=== PATIENT | female | born 1960 | race Two or more races ===

== ENCOUNTER 2018-04-10 16:56 | Emergency (ER) | payer SELFPAY ==
[~2018-04-10] VITALS: Ht 165.1 cm; Wt 86.2 kg
[2018-04-10 18:05] LABS: BASO # 0.1 x10^3/uL (0.0-0.2); BASO % 1 % (0-3); EOS # 0.6 x10^3/uL (0.0-0.7); EOS % 8 % (0-3); HEMATOCRIT 38.1 % (36.0-47.0); HEMOGLOBIN 12.7 g/dL (12.0-15.5); LYMPH # 2.9 x10^3/uL (1.0-4.8); LYMPH % 36 % (24-48); MEAN CORPUSCULAR HEMOGLOBIN 28 pg (25-35); MEAN CORPUSCULAR HGB CONC 33 g/dL (31-37); MEAN CORPUSCULAR VOLUME 84 fL (79-100); MONO # 0.6 x10^3/uL (0.0-1.1); MONO % 7 % (0-9); NEUT # 3.8 x10^3uL (1.8-7.7); NEUT % 48 % (31-73); PLATELET COUNT 257 x10^3/uL (140-400); RED BLOOD COUNT 4.56 x10^6/uL (3.50-5.40); RED CELL DISTRIBUTION WIDTH 13.4 % (11.5-14.5)
[2018-04-10] MEDS: methylPREDNISolone SOD SUCC PF 125 MG/2 ML VIAL. IV ONE (18:05)
[2018-04-10] MEDS: IV NORMAL SALINE 500ML BAG 500 ML IV ONE (18:05)
[2018-04-10] MEDS: IPRATRPIUM/ALBUTEROL 0.5/2.5MG 3 ML NEBU. NEB ONE (18:11)
[2018-04-10 18:16] LABS: CALCIUM 8.7 mg/dL (8.5-10.1); GFR 57.6; POTASSIUM 3.6 mmol/L (3.5-5.1)
[2018-04-10 18:23] LABS: ALBUMIN 3.5 g/dL (3.4-5.0); ALBUMIN/GLOBULIN RATIO 0.7 (1.0-1.7); MAGNESIUM 2.4 mg/dL (1.8-2.4); TOTAL BILIRUBIN 0.3 mg/dL (0.2-1.0); TOTAL PROTEIN 8.8 g/dL (6.4-8.2)
--- NOTE | 2018-04-10 18:33 | PHYS DOC ---
Past Medical History Past Medical History: No Pertinent History Alcohol Use: None Drug Use: None Adult General Chief Complaint Chief Complaint: COUGH HPI HPI [facility] G'dgtr at bedside translating as pt not wanting to use translation phone. 57-year-old female presents to ER with complaints of productive cough, shortness of air, and wheezing which started on Friday and gradually been worsening. Patient reports she has had abdominal pain during coughing episodes. Patient reports she felt feverish last night but did not check her temperature. Patient reports she has been coughing up yellow phlegm. Patient reports she has had increased shortness of air over the past couple of days with chest tightness. Patient denies any swelling in extremities. Patient reports she has had intermittent mild headache denying any dizziness, lightheadedness, or ringing in ears. Patient at this time denies VAZQUEZ and at rest on ER cart denies SOA. Pt reports nobody else in family with similar illness. She denies traveling or being a smoker. Review of Systems Review of Systems Constitutional: Reports feeling feverish last night- denies checking temperature. Reports generalized fatigue Eyes: Denies change in visual acuity, redness, or eye pain [] HENT: Denies nasal congestion or sore throat [] Respiratory: Reports prod. cough with yellow phlegm- reports SOA worse with ambulation. Reports mild wheezing Cardiovascular: Reports chest tightness GI: Denies nausea, vomiting, bloody stools or diarrhea. Reports abd pain with coughing episodes : Denies dysuria or hematuria [] Musculoskeletal: Denies back/neck pain or joint pain [] Integument: Denies rash, swelling or skin lesions [] Neurologic: Denies dizziness/light-headedness, focal weakness or sensory changes. Reports intermittent VAZQUEZ which worsens with coughing episodes All other systems were reviewed and found to be within normal limits, except as documented in this note. Current Medications Current Medications Current Medications Medications (Trade) Dose Ordered Sig/Beverly Start Time Stop Time Status Last Admin Dose Admin Albuterol/ Ipratropium (Duoneb) 3 ml 1X ONCE 04/10/18 18:00 04/10/18 18:01 DC 04/10/18 18:11 3 ML Methylprednisolone Sodium Succinate (SOLU-Medrol 125MG VIAL) 125 mg 1X ONCE 04/10/18 18:00 04/10/18 18:01 DC 04/10/18 18:05 125 MG Sodium Chloride 500 ml @ 500 mls/hr 1X ONCE 04/10/18 18:00 04/10/18 18:59 DC 04/10/18 18:05 500 MLS/HR Allergies Allergies Allergies Coded Allergies Type Severity Reaction Last Updated Verified No Known Drug Allergies 04/10/18 No Physical Exam Physical Exam Constitutional: Well developed, well nourished, no acute distress, non-toxic appearance. [] HENT: Normocephalic, atraumatic, bilateral ears normal, mucous membranes pink/ moist, no oral exudates, nose normal. [] Eyes: 3mm PERRLA, no nystagmus, conjunctiva normal, no discharge. [] Neck: Normal range of motion, no tenderness, supple, no gross adenopathy Cardiovascular:Heart rate regular rhythm, no murmur [] Lungs & Thorax: Bilateral breath sounds clear to auscultation. Faint expiratory wheeze rt upper lobe- Lt upper lobe clear with diminished lung sounds in all lobes- less air movement in bilat. bases Abdomen: Bowel sounds normal, soft, no tenderness, no masses, no pulsatile masses. [] Skin: Warm, dry, no erythema, no rash. [] Back: No tenderness, no CVA tenderness. [] Extremities: No tenderness, no cyanosis, no clubbing, ROM intact, no edema. [] Neurologic: Alert and oriented X 3, normal motor function, normal sensory function, no focal deficits noted. [] Psychologic: Affect normal, judgement normal, mood normal. [] Current Patient Data Vital Signs Vital Signs Date Time Temp Pulse Resp B/P (MAP) Pulse Ox O2 Delivery O2 Flow Rate FiO2 04/10/18 19:26 97.9 86 16 141/63 (89) 99 Room Air 97.9 Lab Values Laboratory Tests Test 04/10/18 17:59 White Blood Count 8.0 x10^3/uL (4.0-11.0) Red Blood Count 4.56 x10^6/uL (3.50-5.40) Hemoglobin 12.7 g/dL (12.0-15.5) Hematocrit 38.1 % (36.0-47.0) Mean Corpuscular Volume 84 fL (79-100) Mean Corpuscular Hemoglobin 28 pg (25-35) Mean Corpuscular Hemoglobin Concent 33 g/dL (31-37) Red Cell Distribution Width 13.4 % (11.5-14.5) Platelet Count 257 x10^3/uL (140-400) Neutrophils (%) (Auto) 48 % (31-73) Lymphocytes (%) (Auto) 36 % (24-48) Monocytes (%) (Auto) 7 % (0-9) Eosinophils (%) (Auto) 8 % (0-3) H Basophils (%) (Auto) 1 % (0-3) Neutrophils # (Auto) 3.8 x10^3uL (1.8-7.7) Lymphocytes # (Auto) 2.9 x10^3/uL (1.0-4.8) Monocytes # (Auto) 0.6 x10^3/uL (0.0-1.1) Eosinophils # (Auto) 0.6 x10^3/uL (0.0-0.7) Basophils # (Auto) 0.1 x10^3/uL (0.0-0.2) Sodium Level 140 mmol/L (136-145) Potassium Level 3.6 mmol/L (3.5-5.1) Chloride Level 103 mmol/L (98-107) Carbon Dioxide Level 31 mmol/L (21-32) Anion Gap 6 (6-14) Blood Urea Nitrogen 14 mg/dL (7-20) Creatinine 1.0 mg/dL (0.6-1.0) Estimated GFR (Cockcroft-Gault) 57.6 BUN/Creatinine Ratio 14 (6-20) Glucose Level 121 mg/dL (70-99) H Calcium Level 8.7 mg/dL (8.5-10.1) Magnesium Level 2.4 mg/dL (1.8-2.4) Total Bilirubin 0.3 mg/dL (0.2-1.0) Aspartate Amino Transferase (AST) 21 U/L (15-37) Alanine Aminotransferase (ALT) 28 U/L (14-59) Alkaline Phosphatase 144 U/L (46-116) H Troponin I Quantitative < 0.017 ng/mL (0.000-0.055) Total Protein 8.8 g/dL (6.4-8.2) H Albumin 3.5 g/dL (3.4-5.0) Albumin/Globulin Ratio 0.7 (1.0-1.7) L Laboratory Tests 04/10/18 17:59 Laboratory Tests 04/10/18 17:59 EKG EKG EKG obtained 04/10/18 at 1758 ER physician interpreted Sinus rhythm Rate 89 No STEMI Radiology/Procedures Radiology/Procedures PROCEDURE: CHEST PA & LATERAL Examination: CHEST PA LATERAL History: ER PATIENT. SHORTNESS OF AIR, PRODUCTIVE COUGH WITH YELLOW SPUTUM X4 DAYS. PRIOR XRAY
Comparison/Correlation: 08/18/2007 portable chest x-ray exam Findings: PA and lateral views of chest were obtained. Heart size and pulmonary vasculature are normal. No infiltrate or pleural effusion. Dextroconvex scoliosis of the thoracic spine is present. Impression: No infiltrate. Electronically signed by: Alejandro Sullivan MD (04/10/2018 6:44 PM) [facility] DICTATED and SIGNED BY: ALEJANDRO SULLIVAN MD DATE: 04/10/18 1843 Course & Med Decision Making Course & Med Decision Making Pertinent Labs and Imaging studies reviewed. (See chart for details) 1855: Pt reports after Duoneb/Solu-Medrol her breathing is easier and chest tightness subsided. Discussed test results with pt and her family- chest xray neg. for infiltrates. EKG with no acute ST elevation/STEMI and troponin <0.017. Discussed with improved sxs pt would be discharged home with Rx for Prednisone to start tomorrow and Albuterol inhaler for PRN use. Will provide Rx for tessalon pearls for cough PRN. Discussed if sxs persist or worsen she would need f/u with PCP in next 3-5 days sooner with any concerns. On re-exam pt has increased air movement in all lung alexander and rt upper wheeze has subsided. HR 80 Temp. 97.9 O2 sat 98% RA. Education provided on s&s to return to ER for and discharge instructions were discussed. At time of discharge discussion pt was in no visible distress smiling- she remains nontoxic in appearance. Dragon Disclaimer Dragon Disclaimer This electronic medical record was generated, in whole or in part, using a voice recognition dictation system. Departure Departure Impression: Primary Impression: Upper respiratory infection Additional Impression: Cough Disposition: 01 HOME, SELF-CARE Condition: STABLE Patient Instructions: Cough, Adult, Upper Respiratory Infection, Adult Additional Instructions: Drink plenty of water. If symptoms persist or worsen follow-up with your primary doctor for re- evaluation in next 3-5 days or sooner with any concerns. Scripts Benzonatate (TESSALON PERLE) 100 Mg Capsule 1 CAP PO TID PRN for COUGH, #10 CAP 0 Refills Prov: ALEX ERNANDEZ APRN 04/10/18 Albuterol Sulfate (PROAIR HFA INHALER) 8.5 Gm Hfa.aer.ad 1 PUFF INH PRN Q6HRS PRN for SHORTNESS OF BREATH, #1 INHALER 0 Refills Prov: ALEX ERNANDEZ APRN 04/10/18 Prednisone (PREDNISONE) 20 Mg Tablet 40 MG PO DAILY for 5 Days, #10 TAB 0 Refills start on 04/11/18 Prov: ALEX ERNANDEZ APRN 04/10/18 Attending Signature Attending Signature I have reviewed the PA/HEEL SEAT POUNDER's note and plan of care. I was available for consultation as needed during the patient's visit in the emergency department. I agree with the clinical impression, plan, and disposition. Problem Qualifiers ALEX ERNANDEZ APRN Apr 10, 2018 18:33 REN CONNELL DO Apr 14, 2018 16:04
--- NOTE | 2018-04-10 18:47 | RAD ---
Examination: CHEST PA LATERAL History: ER PATIENT. SHORTNESS OF AIR, PRODUCTIVE COUGH WITH YELLOW SPUTUM X4 DAYS. PRIOR XRAY
Comparison/Correlation: 08/18/2007 portable chest x-ray exam Findings: PA and lateral views of chest were obtained. Heart size and pulmonary vasculature are normal. No infiltrate or pleural effusion. Dextroconvex scoliosis of the thoracic spine is present. Impression: No infiltrate. Electronically signed by: Alejandro Rivera MD (04/10/2018 6:44 PM) [facility]
--- NOTE | 2018-04-10 18:54 | EKG ---
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
[2018-04-10] MEDS ORDERED: BENZ100C PO (19:07)
[2018-04-10] MEDS ORDERED: PRED20TA PO (19:07)
[2018-04-10] MEDS ORDERED: PROAIR HFA8.5 GM INH (19:07)
[2018-04-10 19:26] VITALS: BP 141/63
== END 2018-04-10 19:25 | disposition home or self-care (01) ==
LOC: ER 16:56
DX: J06.9 Acute upper respiratory infection, unspecified (principal); R53.83 Other fatigue
CPT/HCPCS: 36415; 71046; 80053; 83735; 84484; 85025; 93005; 94640; 96374; 99285; J2930; J7040; J7620

== ENCOUNTER 2018-07-23 15:33 | Emergency (ER) | payer SELFPAY ==
[~2018-07-23] VITALS: Ht 167.6 cm; Wt 86.2 kg
[~2018-07-23 15:33] MED LIST: ALBU2.5V8 INH; BENZ100C PO; PRED20TA PO
[2018-07-23] MEDS ORDERED: CETIRIZINE HCL 10 MG TABLET. PO STA (16:52)
[2018-07-23] MEDS ORDERED: methylPREDNISolone SOD SUCC PF 125 MG/2 ML VIAL. IV ONE (17:00)
[2018-07-23] MEDS ORDERED: IPRATRPIUM/ALBUTEROL 0.5/2.5MG 3 ML NEBU. NEB ONE (17:00)
[2018-07-23] MEDS ORDERED: ACETAMINOPHEN 500 MG TABLET PO ONE (17:00)
[2018-07-23 17:08] LABS: BARBITURATES NEG (NEG); BENZODIAZEPINES NEG (NEG); CANNABINOIDS NEG (NEG); COCAINE NEG (NEG); METHADONE NEG (NEG); OPIATES NEG (NEG); PHENCYCLIDINE NEG (NEG)
[2018-07-23 17:10] LABS: AMPHETAMINE/METHAMPHETAMINE NEG (NEG)
[2018-07-23 17:18] LABS: BASO # 0.1 x10^3/uL (0.0-0.2); BASO % 1 % (0-3); EOS # 1.2 x10^3/uL (0.0-0.7); EOS % 17 % (0-3); HEMATOCRIT 40.8 % (36.0-47.0); HEMOGLOBIN 13.1 g/dL (12.0-15.5); LYMPH # 2.7 x10^3/uL (1.0-4.8); LYMPH % 38 % (24-48); MEAN CORPUSCULAR HEMOGLOBIN 27 pg (25-35); MEAN CORPUSCULAR HGB CONC 32 g/dL (31-37); MEAN CORPUSCULAR VOLUME 83 fL (79-100); MONO # 0.5 x10^3/uL (0.0-1.1); MONO % 7 % (0-9); NEUT # 2.7 x10^3uL (1.8-7.7); NEUT % 38 % (31-73); PLATELET COUNT 252 x10^3/uL (140-400); RED BLOOD COUNT 4.92 x10^6/uL (3.50-5.40); RED CELL DISTRIBUTION WIDTH 14.1 % (11.5-14.5); WHITE BLOOD COUNT 7.1 x10^3/uL (4.0-11.0)
[2018-07-23 17:19] LABS: CLARITY,URINE CLEAR; COLOR,URINE YELLOW
[2018-07-23 17:20] LABS: BACTERIA,URINE FEW /HPF (0-FEW); BILIRUBIN,URINE NEGATIVE (NEG); NITRITE,URINE NEGATIVE (NEG); PH,URINE 6.5; PROTEIN,URINE NEGATIVE (NEG-TRACE); RBC,URINE RARE /HPF (0-2); SQUAMOUS EPITHELIAL CELL,UR MOD /LPF; UROBILINOGEN,URINE 0.2 mg/dL (0.2 mg/dL)
[2018-07-23 17:26] LABS: PROTHROMBIN TIME PATIENT 12.6 SEC (11.7-14.0)
[2018-07-23 17:27] LABS: CALCIUM 9.2 mg/dL (8.5-10.1); CREATININE 0.8 mg/dL (0.6-1.0); GFR 74.5; POTASSIUM 3.6 mmol/L (3.5-5.1)
--- NOTE | 2018-07-23 17:30 | PHYS DOC ---
Past Medical History Past Medical History: No Pertinent History Past Surgical History: No Surgical History Alcohol Use: None Drug Use: None Adult General Chief Complaint Chief Complaint: SHORTNESS OF BREATH HPI HPI Patient is a 57 year old female in no significant medical history who presents to the ED today with productive cough 7 out of 10 generalize headache, body aches, shortness of breath, and nasal congestion symptoms for 4 days. Denies any fever. She states her shortness of breath and headaches occur when she coughs. Denies this being the worst headache in her life. Denies taking anything to relieve her symptoms. Patient's also complaining of bilateral exterior eye rash and swelling that began today. Interpretation is provided by family de la cruz [employer] language Review of Systems Review of Systems Constitutional: Reports body aches Denies fever or chills [] Eyes: Reports bilateral exterior eye rash.Denies change in visual acuity, redness, or eye pain [] HENT: Denies nasal congestion or sore throat [] Respiratory: Reports cough and shortness of breath [] Cardiovascular: No additional information not addressed in HPI [] GI: Denies abdominal pain, nausea, vomiting, bloody stools or diarrhea [] : Denies dysuria or hematuria [] Musculoskeletal: Denies back pain or joint pain [] Integument: Denies rash or skin lesions [] Neurologic: Denies headache, focal weakness or sensory changes [] All other systems were reviewed and found to be within normal limits, except as documented in this note. Current Medications Current Medications Current Medications Medications (Trade) Dose Ordered Sig/Beverly Start Time Stop Time Status Last Admin Dose Admin Acetaminophen (Tylenol) 1,000 mg 1X ONCE 07/23/18 17:00 07/23/18 17:01 DC 07/23/18 17:40 1,000 MG Albuterol/ Ipratropium (Duoneb) 3 ml 1X ONCE 07/23/18 17:00 07/23/18 17:01 DC 07/23/18 17:35 3 ML Cetirizine HCl (ZyrTEC) 10 mg 1X STAT 07/23/18 16:52 07/23/18 16:55 DC 07/23/18 17:39 10 MG Methylprednisolone Sodium Succinate (SOLU-Medrol 125MG VIAL) 125 mg 1X ONCE 07/23/18 17:00 07/23/18 17:01 DC 07/23/18 17:39 125 MG Allergies Allergies Allergies Coded Allergies Type Severity Reaction Last Updated Verified No Known Drug Allergies 04/10/18 No Physical Exam Physical Exam Constitutional: Well developed, well nourished, no acute distress, non-toxic appearance. [] HENT: Normocephalic, atraumatic, bilateral external ears normal, oropharynx moist, no oral exudates, nose normal. [] Eyes: Bilateral exterior eyes with a mild rash suspicious of contact dermatitis , similar rash on the face around the cheeks and upper lip. PERRLA, EOMI, conjunctiva normal, no discharge. [] Neck: Normal range of motion, no tenderness, supple, no stridor. [] Cardiovascular:Heart rate regular rhythm, no murmur [] Lungs & Thorax: Patient is actively coughing in the ED. Slight wheezing to posterior and anterior upper lung bases. Abdomen: Bowel sounds normal, soft, no tenderness, no masses, no pulsatile masses. [] Skin: Warm, dry, no erythema, no rash. [] Back: No tenderness, no CVA tenderness. [] Extremities: No tenderness, no cyanosis, no clubbing, ROM intact, no edema. [] Neurologic: Alert and oriented X 3, normal motor function, normal sensory function, no focal deficits noted. [] Psychologic: Affect normal, judgement normal, mood normal. [] Current Patient Data Vital Signs Vital Signs Date Time Temp Pulse Resp B/P (MAP) Pulse Ox O2 Delivery O2 Flow Rate FiO2 07/23/18 17:41 95 Room Air 07/23/18 16:30 98.0 86 20 176/87 (116) 98.0 Lab Values Laboratory Tests Test 07/23/18 16:35 07/23/18 17:00 07/23/18 17:20 Urine Collection Type Unknown Urine Color Yellow Urine Clarity Clear Urine pH 6.5 Urine Specific [place] <=1.005 Urine Protein Negative mg/dL (NEG-TRACE) Urine Glucose (UA) Negative mg/dL (NEG) Urine Ketones (Stick) Negative mg/dL (NEG) Urine Blood Trace (NEG) Urine Nitrite Negative (NEG) Urine Bilirubin Negative (NEG) Urine Urobilinogen Dipstick 0.2 mg/dL (0.2 mg/dL) Urine Leukocyte Esterase Small (NEG) Urine RBC Rare /HPF (0-2) Urine WBC 1-4 /HPF (0-4) Urine Squamous Epithelial Cells Mod /LPF Urine Bacteria Few /HPF (0-FEW) Urine Opiates Screen Neg (NEG) Urine Methadone Screen Neg (NEG) Urine Barbiturates Neg (NEG) Urine Phencyclidine Screen Neg (NEG) Urine Amphetamine/Methamphetamine Neg (NEG) Urine Benzodiazepines Screen Neg (NEG) Urine Cocaine Screen Neg (NEG) Urine Cannabinoids Screen Neg (NEG) Urine Ethyl Alcohol Neg (NEG) White Blood Count 7.1 x10^3/uL (4.0-11.0) Red Blood Count 4.92 x10^6/uL (3.50-5.40) Hemoglobin 13.1 g/dL (12.0-15.5) Hematocrit 40.8 % (36.0-47.0) Mean Corpuscular Volume 83 fL (79-100) Mean Corpuscular Hemoglobin 27 pg (25-35) Mean Corpuscular Hemoglobin Concent 32 g/dL (31-37) Red Cell Distribution Width 14.1 % (11.5-14.5) Platelet Count 252 x10^3/uL (140-400) Neutrophils (%) (Auto) 38 % (31-73) Lymphocytes (%) (Auto) 38 % (24-48) Monocytes (%) (Auto) 7 % (0-9) Eosinophils (%) (Auto) 17 % (0-3) H Basophils (%) (Auto) 1 % (0-3) Neutrophils # (Auto) 2.7 x10^3uL (1.8-7.7) Lymphocytes # (Auto) 2.7 x10^3/uL (1.0-4.8) Monocytes # (Auto) 0.5 x10^3/uL (0.0-1.1) Eosinophils # (Auto) 1.2 x10^3/uL (0.0-0.7) H Basophils # (Auto) 0.1 x10^3/uL (0.0-0.2) Segmented Neutrophils % 45 % (35-66) Band Neutrophils % 1 % (0-9) Lymphocytes % 28 % (24-48) Atypical Lymphocytes % (Manual) 1 % (0-0) H Monocytes % 9 % (0-10) Eosinophils % 16 % (0-5) H Platelet Estimate Adequate (ADEQUATE) Prothrombin Time 12.6 SEC (11.7-14.0) Prothrombin Time INR 1.0 (0.8-1.1) Sodium Level 141 mmol/L (136-145) Potassium Level 3.6 mmol/L (3.5-5.1) Chloride Level 103 mmol/L (98-107) Carbon Dioxide Level 32 mmol/L (21-32) Anion Gap 6 (6-14) Blood Urea Nitrogen 11 mg/dL (7-20) Creatinine 0.8 mg/dL (0.6-1.0) Estimated GFR (Cockcroft-Gault) 74.5 BUN/Creatinine Ratio 14 (6-20) Glucose Level 84 mg/dL (70-99) Calcium Level 9.2 mg/dL (8.5-10.1) Magnesium Level 2.5 mg/dL (1.8-2.4) H Total Bilirubin 0.4 mg/dL (0.2-1.0) Aspartate Amino Transferase (AST) 19 U/L (15-37) Alanine Aminotransferase (ALT) 23 U/L (14-59) Alkaline Phosphatase 151 U/L (46-116) H Creatine Kinase 122 U/L (26-192) Creatine Kinase MB (Mass) 0.8 ng/mL (0.0-3.6) Creatine Kinase MB Relative Index 0.7 % (0-4) Troponin I Quantitative < 0.017 ng/mL (0.000-0.055) DB-Ldu-I-Type Natriuretic Peptide 21 pg/mL (0-124) Total Protein 9.0 g/dL (6.4-8.2) H Albumin 3.5 g/dL (3.4-5.0) Albumin/Globulin Ratio 0.6 (1.0-1.7) L Thyroid Stimulating Hormone (TSH) 1.982 uIU/mL (0.358-3.74) Influenza Type A Antigen Negative (NEGATIVE) Influenza Type B Antigen Negative (NEGATIVE) Laboratory Tests 07/23/18 17:00 Laboratory Tests 07/23/18 17:00 EKG EKG Interpreted by Dr. Warren sinus rhythm HR 77 no STEMI[] Radiology/Procedures Radiology/Procedures []PROCEDURE: PORTABLE CHEST 1V AP portable chest radiograph 07/23/2018 Clinical History: Cough. An AP erect portable digital radiograph of the chest was obtained. Comparison study is dated 04/10/2018. The cardiac silhouette is mildly enlarged. The thoracic aorta is tortuous. No acute pulmonary infiltrate is seen. No pleural effusion or pneumothorax is noted. Moderate S-shaped curvature of the thoracolumbar spine is seen. Degenerative changes are seen involving the thoracic spine. Impression: No acute abnormality is seen. Electronically signed by: Henry Hurt MD (07/23/2018 5:58 PM) [facility] DICTATED and SIGNED BY: HENRY HURT MD DATE: 07/23/18 9409 Course & Med Decision Making Course & Med Decision Making Pertinent Labs and Imaging studies reviewed. (See chart for details) This is a 57-year-old female patient presenting to the ED today with cough, headache only when she coughs, shortness of breath, symptoms for 4 days. Patient is also complaining of a rash around her exterior eye, cheeks and upper lip. Rash suspicious of allergic reaction or contact dermatitis. Patient was given Solu-Medrol, Zyrtec, rash has improved. EKG was negative, chest x-ray is negative, urine analysis is appears contaminated. CBC with no acute findings, CMP with alkaline phosphatase of 157. Patient denies any abdominal pain. Patient was given a DuoNeb treatment. She states she is feeling better her breathing is back to baseline. I highly suspect she has acute bronchitis. Will be discharged with albuterol inhaler, prednisone and Tessalon Perles. Follow-up with PCP in 1-2 weeks. Also her blood pressure was in the 150s over low 100s. She is no history of hypertension. Her family member states she will take patient to a primary care doctor/local clinic in the course of next week. Dragon Disclaimer Dragon Disclaimer This electronic medical record was generated, in whole or in part, using a voice recognition dictation system. Departure Departure Impression: Primary Impression: Acute bronchitis Additional Impressions: Upper respiratory infection Contact dermatitis Elevated blood pressure reading Disposition: 01 HOME, SELF-CARE Condition: STABLE Referrals: NO PCP (PCP) Follow-up with your doctor in one week Patient Instructions: Acute Bronchitis, [id number], Contact Dermatitis, Upper Respiratory Infection, Adult, [id number] Additional Instructions: You were evaluated in the emergency room for acute bronchitis. Take the prescribed medications as ordered. Your blood pressure was also elevated. Follow -up with your own doctor in 1-2 weeks. Scripts Cetirizine Hcl (ZYRTEC) 10 Mg Tablet 1 TAB PO DAILY, #30 TAB 3 Refills Prov: YESSENIA QUIÑONEZ APRN 07/23/18 Albuterol Sulfate (VENTOLIN HFA INHALER) 18 Gm Hfa.aer.ad 2 PUFF INH Q4HRS for FOR ASTHMA, #1 INHALER 0 Refills Prov: YESSENIA QUIÑONEZ APRN 07/23/18 Benzonatate (TESSALON PERLE) 100 Mg Capsule 1 CAP PO TID, #30 CAP Prov: YESSENIA QUIÑONEZ APRN 07/23/18 Prednisone (PREDNISONE) 50 Mg Tablet 1 TAB PO DAILY, #5 TAB Prov: YESSENIA QUIÑONEZ APRN 07/23/18 Ketotifen Fumarate (ZADITOR) 5 Ml Drops 1 DROP EACHEYE BID, #5 ML 1 Refill Prov: YESSENIA QUIÑONEZ APRN 07/23/18 Problem Qualifiers Primary Impression: Acute bronchitis Bronchitis organism: unspecified organism Qualified Codes: J20.9 - Acute bronchitis, unspecified Additional Impressions: Upper respiratory infection URI type: unspecified URI Qualified Codes: J06.9 - Acute upper respiratory infection, unspecified Contact dermatitis Contact dermatitis type: unspecified Contact dermatitis trigger: unspecified trigger Qualified Codes: L25.9 - Unspecified contact dermatitis, unspecified cause YESSENIA QUIÑONEZ APRN Jul 23, 2018 17:30
[2018-07-23 17:35] LABS: ALBUMIN 3.5 g/dL (3.4-5.0); ALBUMIN/GLOBULIN RATIO 0.6 (1.0-1.7); MAGNESIUM 2.5 mg/dL (1.8-2.4); TOTAL BILIRUBIN 0.4 mg/dL (0.2-1.0)
[2018-07-23 17:48] LABS: INFLUENZA A PATIENT NEGATIVE (NEGATIVE); INFLUENZA B PATIENT NEGATIVE (NEGATIVE)
[2018-07-23 17:53] LABS: % ATYL 1 % (0-0); % BANDS 1 % (0-9); % EOS 16 % (0-5); % LYMPHS 28 % (24-48); % MONOS 9 % (0-10); % SEGS 45 % (35-66); PLT ESTIMATE ADEQUATE (ADEQUATE)
--- NOTE | 2018-07-23 18:01 | RAD ---
AP portable chest radiograph 07/23/2018 Clinical History: Cough. An AP erect portable digital radiograph of the chest was obtained. Comparison study is dated 04/10/2018. The cardiac silhouette is mildly enlarged. The thoracic aorta is tortuous. No acute pulmonary infiltrate is seen. No pleural effusion or pneumothorax is noted. Moderate S-shaped curvature of the thoracolumbar spine is seen. Degenerative changes are seen involving the thoracic spine. Impression: No acute abnormality is seen. Electronically signed by: Henry Hurt MD (07/23/2018 5:58 PM) [facility]
[2018-07-23] MEDS ORDERED: VENTOLIN HFA18 GM INH (18:33)
[2018-07-23] MEDS ORDERED: BENZ100C PO (18:33)
[2018-07-23] MEDS ORDERED: PRED50TA PO (18:33)
[2018-07-23] MEDS ORDERED: CETI10TA22 PO (18:33)
[2018-07-23] MEDS ORDERED: KETO5DRO4 EACHEYE (18:33)
[2018-07-23 19:10] VITALS: BP 152/72
--- NOTE | 2018-07-23 21:11 | EKG ---
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
== END 2018-07-23 19:20 | disposition home or self-care (01) ==
LOC: ER 15:33
DX: J20.9 Acute bronchitis, unspecified (principal); J06.9 Acute upper respiratory infection, unspecified; L25.9 Unspecified contact dermatitis, unspecified cause; R03.0 Elevated blood-pressure reading, without diagnosis of hypertension; R51 Headache
CPT/HCPCS: 36415; 71045; 80053; 80307; 81001; 82553; 83735; 83880; 84443; 84484; 85007; 85025; 85610; 87804; 93005; 94640; 96374; 99284; J2930; J7620

== ENCOUNTER 2018-08-07 18:39 | Inpatient (IN) | payer SELFPAY ==
[~2018-08-07] VITALS: Ht 162.6 cm; Wt 88.5 kg
[~2018-08-07 18:39] MED LIST changes: +CETI10TA22 PO; +KETO5DRO4 EACHEYE; +PRED50TA PO; +VENTOLIN HFA18 GM INH
[2018-08-07] MEDS ORDERED: IV NORMAL SALINE 500ML BAG 500 ML IV ONE (19:15)
[2018-08-07] MEDS ORDERED: fentaNYL PF VIAL 100 MCG/2 ML VIAL IV ONE (19:15)
[2018-08-07] MEDS ORDERED: predniSONE 10 MG TABLET PO ONE (19:15)
[2018-08-07] MEDS ORDERED: IPRATRPIUM/ALBUTEROL 0.5/2.5MG 3 ML NEBU. NEB ONE (19:15)
--- NOTE | 2018-08-07 19:16 | PHYS DOC ---
Past Medical History Past Medical History: No Pertinent History (ALEX ERNANDEZ APRN) Past Surgical History: No Surgical History (ALEX ERNANDEZ APRN) Alcohol Use: None Drug Use: None (ALEX ERNANDEZ APRN) Adult General Chief Complaint Chief Complaint: CHEST PAIN HPI HPI 57 y/o female presents to ER with his family who is translating as patient speaks Chukese. Per granddaughter at bedside patient started having cough and mid CP last night with chills and generalized fatigue. Family denies any recent travel or patient being in a daily smoker. Pt denies N/V/D. She denies urinary sxs, abd pain, neck/back pain, or swelling. She took ibuprofen earlier with minimal relief in sxs. No others in home with similar illness. Pt did not receive flu vaccine last year. (ALEX ERNANDEZ APRN) Review of Systems Review of Systems Constitutional: Denies fever. Reports chills and generalized fatigue Eyes: Denies change in visual acuity, redness, or eye pain [] HENT: Denies nasal congestion or sore throat [] Respiratory: Reports cough and SOA Cardiovascular: Reports mid CP GI: Denies abdominal pain, nausea, vomiting, bloody stools or diarrhea [] : Denies dysuria or hematuria [] Musculoskeletal: Denies back pain or joint pain [] Integument: Denies rash or skin lesions [] Neurologic: Denies headache, focal weakness or sensory changes [] Endocrine: Denies polyuria or polydipsia [] All other systems were reviewed and found to be within normal limits, except as documented in this note. (ALEX ERNANDEZ APRN) Current Medications Current Medications Current Medications Medications (Trade) Dose Ordered Sig/Beverly Start Time Stop Time Status Last Admin Dose Admin Albuterol Sulfate (Ventolin Neb Soln) 10 mg 1X ONCE 08/07/18 20:00 08/07/18 20:01 DC 08/07/18 20:32 10 MG Albuterol/ Ipratropium (Duoneb) 3 ml 1X ONCE 08/07/18 20:00 08/07/18 20:01 Cancel Fentanyl Citrate (Fentanyl 2ml Vial) 25 mcg 1X ONCE 08/07/18 19:15 08/07/18 19:16 DC 08/07/18 19:26 25 MCG Prednisone (Prednisone) 50 mg 1X ONCE 08/07/18 19:15 08/07/18 19:16 DC 08/07/18 19:26 50 MG Sodium Chloride 1,000 ml @ 1,000 mls/hr 1X ONCE 08/07/18 19:30 08/07/18 20:29 DC 08/07/18 19:25 1,000 MLS/HR (REN CONNELL DO) Allergies Allergies Allergies Coded Allergies Type Severity Reaction Last Updated Verified No Known Drug Allergies 04/10/18 No (REN CONNELL DO) Physical Exam Physical Exam Constitutional: Well developed, well nourished, no acute distress, non-toxic appearance.Fatigued appearance HENT: Normocephalic, atraumatic, bilateral ears normal, mucous membranes pink/dry- no pharyngeal swelling/erythema, no oral exudates, nose normal. [] Eyes: Pupils equal, conjunctiva normal, no discharge. [] Neck: Normal range of motion, no tenderness, supple, no stridor. [] Cardiovascular: Heart rate regular rhythm, no murmur [] Lungs & Thorax: Coarse bilat. upper lung sounds with expiratory wheezing bilat. Decreased air movement throughout all lung alexander with less air movement in bases. Resp. slightly labored/equal. Pt is speaking in full sentences with family Abdomen: Bowel sounds normal, soft/obese, no tenderness, no masses, no pulsatile masses. [] Skin: Warm, dry, no erythema, no rash. [] Back: No tenderness, no CVA tenderness. [] Extremities: No tenderness, no cyanosis, no clubbing, ROM intact, 1+ bilat nonpitting Neurologic: Alert and oriented X 3, normal motor function, normal sensory function, no focal deficits noted. [] Psychologic: Affect normal, judgement normal, mood normal. [] (AZART,ALEX Martinez APRN) Current Patient Data Lab Values Laboratory Tests Test 08/07/18 18:52 08/07/18 19:44 08/07/18 20:29 White Blood Count 9.7 x10^3/uL (4.0-11.0) Red Blood Count 4.79 x10^6/uL (3.50-5.40) Hemoglobin 12.9 g/dL (12.0-15.5) Hematocrit 39.3 % (36.0-47.0) Mean Corpuscular Volume 82 fL (79-100) Mean Corpuscular Hemoglobin 27 pg (25-35) Mean Corpuscular Hemoglobin Concent 33 g/dL (31-37) Red Cell Distribution Width 14.8 % (11.5-14.5) H Platelet Count 332 x10^3/uL (140-400) Neutrophils (%) (Auto) 51 % (31-73) Lymphocytes (%) (Auto) 34 % (24-48) Monocytes (%) (Auto) 6 % (0-9) Eosinophils (%) (Auto) 9 % (0-3) H Basophils (%) (Auto) 1 % (0-3) Neutrophils # (Auto) 5.0 x10^3uL (1.8-7.7) Lymphocytes # (Auto) 3.3 x10^3/uL (1.0-4.8) Monocytes # (Auto) 0.6 x10^3/uL (0.0-1.1) Eosinophils # (Auto) 0.8 x10^3/uL (0.0-0.7) H Basophils # (Auto) 0.1 x10^3/uL (0.0-0.2) Sodium Level 140 mmol/L (136-145) Potassium Level 3.7 mmol/L (3.5-5.1) Chloride Level 102 mmol/L (98-107) Carbon Dioxide Level 30 mmol/L (21-32) Anion Gap 8 (6-14) Blood Urea Nitrogen 11 mg/dL (7-20) Creatinine 0.8 mg/dL (0.6-1.0) Estimated GFR (Cockcroft-Gault) 74.5 BUN/Creatinine Ratio 14 (6-20) Glucose Level 107 mg/dL (70-99) H Calcium Level 9.2 mg/dL (8.5-10.1) Magnesium Level 2.5 mg/dL (1.8-2.4) H Total Bilirubin 0.6 mg/dL (0.2-1.0) Aspartate Amino Transferase (AST) 16 U/L (15-37) Alanine Aminotransferase (ALT) 20 U/L (14-59) Alkaline Phosphatase 153 U/L (46-116) H Troponin I Quantitative < 0.017 ng/mL (0.000-0.055) Total Protein 9.2 g/dL (6.4-8.2) H Albumin 3.6 g/dL (3.4-5.0) Albumin/Globulin Ratio 0.6 (1.0-1.7) L Lactic Acid Level 1.7 mmol/L (0.4-2.0) Influenza Type A Antigen Negative (NEGATIVE) Influenza Type B Antigen Negative (NEGATIVE) Urine Collection Type Unknown Urine Color Yellow Urine Clarity Clear Urine pH 6.5 Urine Specific [place] 1.020 Urine Protein Negative mg/dL (NEG-TRACE) Urine Glucose (UA) Negative mg/dL (NEG) Urine Ketones (Stick) Negative mg/dL (NEG) Urine Blood Moderate (NEG) Urine Nitrite Positive (NEG) Urine Bilirubin Negative (NEG) Urine Urobilinogen Dipstick 1.0 mg/dL (0.2 mg/dL) Urine Leukocyte Esterase Small (NEG) Urine RBC Occ /HPF (0-2) Urine WBC 11-20 /HPF (0-4) Urine Squamous Epithelial Cells Occ /LPF Urine Bacteria Many /HPF (0-FEW) Urine Mucus Mod /LPF Laboratory Tests 08/07/18 18:52 Laboratory Tests 08/07/18 18:52 (REN CONNELL DO) Lab Values Laboratory Tests Test 08/07/18 18:52 08/07/18 19:44 08/07/18 20:29 White Blood Count 9.7 x10^3/uL (4.0-11.0) Red Blood Count 4.79 x10^6/uL (3.50-5.40) Hemoglobin 12.9 g/dL (12.0-15.5) Hematocrit 39.3 % (36.0-47.0) Mean Corpuscular Volume 82 fL (79-100) Mean Corpuscular Hemoglobin 27 pg (25-35) Mean Corpuscular Hemoglobin Concent 33 g/dL (31-37) Red Cell Distribution Width 14.8 % (11.5-14.5) H Platelet Count 332 x10^3/uL (140-400) Neutrophils (%) (Auto) 51 % (31-73) Lymphocytes (%) (Auto) 34 % (24-48) Monocytes (%) (Auto) 6 % (0-9) Eosinophils (%) (Auto) 9 % (0-3) H Basophils (%) (Auto) 1 % (0-3) Neutrophils # (Auto) 5.0 x10^3uL (1.8-7.7) Lymphocytes # (Auto) 3.3 x10^3/uL (1.0-4.8) Monocytes # (Auto) 0.6 x10^3/uL (0.0-1.1) Eosinophils # (Auto) 0.8 x10^3/uL (0.0-0.7) H Basophils # (Auto) 0.1 x10^3/uL (0.0-0.2) Sodium Level 140 mmol/L (136-145) Potassium Level 3.7 mmol/L (3.5-5.1) Chloride Level 102 mmol/L (98-107) Carbon Dioxide Level 30 mmol/L (21-32) Anion Gap 8 (6-14) Blood Urea Nitrogen 11 mg/dL (7-20) Creatinine 0.8 mg/dL (0.6-1.0) Estimated GFR (Cockcroft-Gault) 74.5 BUN/Creatinine Ratio 14 (6-20) Glucose Level 107 mg/dL (70-99) H Calcium Level 9.2 mg/dL (8.5-10.1) Magnesium Level 2.5 mg/dL (1.8-2.4) H Total Bilirubin 0.6 mg/dL (0.2-1.0) Aspartate Amino Transferase (AST) 16 U/L (15-37) Alanine Aminotransferase (ALT) 20 U/L (14-59) Alkaline Phosphatase 153 U/L (46-116) H Troponin I Quantitative < 0.017 ng/mL (0.000-0.055) Total Protein 9.2 g/dL (6.4-8.2) H Albumin 3.6 g/dL (3.4-5.0) Albumin/Globulin Ratio 0.6 (1.0-1.7) L Lactic Acid Level 1.7 mmol/L (0.4-2.0) Influenza Type A Antigen Negative (NEGATIVE) Influenza Type B Antigen Negative (NEGATIVE) Urine Collection Type Unknown Urine Color Yellow Urine Clarity Clear Urine pH 6.5 Urine Specific [place] 1.020 Urine Protein Negative mg/dL (NEG-TRACE) Urine Glucose (UA) Negative mg/dL (NEG) Urine Ketones (Stick) Negative mg/dL (NEG) Urine Blood Moderate (NEG) Urine Nitrite Positive (NEG) Urine Bilirubin Negative (NEG) Urine Urobilinogen Dipstick 1.0 mg/dL (0.2 mg/dL) Urine Leukocyte Esterase Small (NEG) Urine RBC Occ /HPF (0-2) Urine WBC 11-20 /HPF (0-4) Urine Squamous Epithelial Cells Occ /LPF Urine Bacteria Many /HPF (0-FEW) Urine Mucus Mod /LPF Laboratory Tests 08/07/18 18:52 Laboratory Tests 08/07/18 18:52 (ALEX ERNANDEZ APRN) EKG EKG EKG obtained 08/07/18 at [address] Connell Sinus rhythm Rate 98 No STEMI (ALEX ERNANDEZ APRN) Radiology/Procedures Radiology/Procedures [] (ALEX ERNANDEZ APRN) Course & Med Decision Making Course & Med Decision Making Pertinent Labs and Imaging studies reviewed. (See chart for details) Patient was evaluated in the ER for complaints of cough, shortness of air, and mid chest pain. Patient's chest x-ray was evaluated by Dr. Connell with no obvious acute findings. Patient was given PO Prednisone and Duoneb treatment she continued to have inspiratory/expiratory wheezing and coarse lung sounds in upper lung alexander. She did have slight increase in air movement in bases following initial treatment. With ongoing wheezing and coarse upper lung right pt was given continuous neb. tx x1 hr and admission was discussed with pt and her family. She is agreeable with admission plan. WBCs were 9.7 no bands and lactic acid normal limits at 1.7. EKG with no acute ST elevation or STEMI and troponin was <0.017. Test results were discussed with patient and her family. At time of discussion patient was in no visible distress. Respirations were equal and nonlabored. O2 sat was 96% on room air. Will start patient on IV Rocephin and azithromycin while in the ER. Will admit patient to hospitalist services for further care and monitoring. 2104: Spoke with Dr. Mercer, hospitalist discussed patient's case and admit plan- per his request will consult pulmonology with admit orders. Will admit to med/tele for further monitoring. (ALEX ERNANDEZ APRN) Dragon Disclaimer Dragon Disclaimer This electronic medical record was generated, in whole or in part, using a voice recognition dictation system. (ALEX ERNANDEZ APRN) Departure Departure Impression: Primary Impression: Acute bronchitis Additional Impressions: Chest pain Cough Disposition: ADMITTED INPATIENT Admitting Physician: Danuta Mercer (ALEX ERNANDEZ APRN) Condition: STABLE Referrals: NO PCP (PCP) Scripts No Active Prescriptions or Reported Meds Attending Signature Attending Signature I have reviewed the PA/IT TECHNICAL SUPPORT SPECIALIST's note and plan of care. I was available for consultation as needed during the patient's visit in the emergency department. I agree with the clinical impression, plan, and disposition. (REN CONNELL DO) Problem Qualifiers ALEX ERNANDEZ APRN Aug 07, 2018 19:16 REN OCNNELL DO Sep 29, 2018 05:30
[2018-08-07 19:24] LABS: BASO # 0.1 x10^3/uL (0.0-0.2); BASO % 1 % (0-3); EOS # 0.8 x10^3/uL (0.0-0.7); EOS % 9 % (0-3); HEMATOCRIT 39.3 % (36.0-47.0); HEMOGLOBIN 12.9 g/dL (12.0-15.5); LYMPH # 3.3 x10^3/uL (1.0-4.8); LYMPH % 34 % (24-48); MEAN CORPUSCULAR HEMOGLOBIN 27 pg (25-35); MEAN CORPUSCULAR HGB CONC 33 g/dL (31-37); MEAN CORPUSCULAR VOLUME 82 fL (79-100); MONO # 0.6 x10^3/uL (0.0-1.1); MONO % 6 % (0-9); NEUT % 51 % (31-73); PLATELET COUNT 332 x10^3/uL (140-400); RED BLOOD COUNT 4.79 x10^6/uL (3.50-5.40); RED CELL DISTRIBUTION WIDTH 14.8 % (11.5-14.5); WHITE BLOOD COUNT 9.7 x10^3/uL (4.0-11.0)
[2018-08-07] MEDS ORDERED: IV NORMAL SALINE 1000ML BAG 1,000 ML IV ONE (19:30)
[2018-08-07 19:40] LABS: CALCIUM 9.2 mg/dL (8.5-10.1); CREATININE 0.8 mg/dL (0.6-1.0); GFR 74.5; POTASSIUM 3.7 mmol/L (3.5-5.1)
[2018-08-07 19:47] LABS: ALBUMIN 3.6 g/dL (3.4-5.0); ALBUMIN/GLOBULIN RATIO 0.6 (1.0-1.7); MAGNESIUM 2.5 mg/dL (1.8-2.4); TOTAL BILIRUBIN 0.6 mg/dL (0.2-1.0); TOTAL PROTEIN 9.2 g/dL (6.4-8.2)
[2018-08-07] MEDS ORDERED: IPRATRPIUM/ALBUTEROL 0.5/2.5MG 3 ML NEBU. CONT NEB ONE (20:00)
[2018-08-07] MEDS ORDERED: ALBUTEROL SULFATE 2.5 MG/3 ML NEBU. CONT NEB ONE (20:00)
[2018-08-07 20:15] LABS: INFLUENZA A PATIENT NEGATIVE (NEGATIVE); INFLUENZA B PATIENT NEGATIVE (NEGATIVE)
[2018-08-07 20:44] LABS: BILIRUBIN,URINE NEGATIVE (NEG); CLARITY,URINE CLEAR; COLOR,URINE YELLOW; NITRITE,URINE POSITIVE (NEG); PH,URINE 6.5; PROTEIN,URINE NEGATIVE (NEG-TRACE)
[2018-08-07 20:55] LABS: BACTERIA,URINE MANY /HPF (0-FEW); RBC,URINE OCC /HPF (0-2); SQUAMOUS EPITHELIAL CELL,UR OCC /LPF
[2018-08-07] MEDS ORDERED: ACETAMINOPHEN 325 MG TABLET. PO PRN (21:30)
[2018-08-07] MEDS ORDERED: AZITHRMYCN 500MG IVPB FOR OMNI 250 ML IV ONE (21:30)
[2018-08-07] MEDS ORDERED: cefTRIAXone IV Push 1 GM VIAL. IVP ONE (21:30)
--- NOTE | 2018-08-07 21:49 | RAD ---
EXAM: Chest, 2 views. HISTORY: Chest pain. COMPARISON: 07/23/2018 FINDINGS: 2 views of the chest are obtained. There is right infrahilar opacity due to prominent right pulmonary vascular shadows, accentuated due to thoracic scoliosis. There is no consolidation, pleural effusion or pneumothorax. The heart is normal in size. IMPRESSION: No acute pulmonary finding. Electronically signed by: Nirmala Snow MD (08/07/2018 9:46 PM) [id number]
[2018-08-07 22:31] VITALS: BP 152/66
[2018-08-08 02:42] VITALS: BP 149/60
[2018-08-08 04:17] LABS: BASO % 0 % (0-3); EOS % 0 % (0-3); HEMATOCRIT 35.1 % (36.0-47.0); HEMOGLOBIN 11.1 g/dL (12.0-15.5); LYMPH # 0.5 x10^3/uL (1.0-4.8); LYMPH % 7 % (24-48); MEAN CORPUSCULAR HEMOGLOBIN 27 pg (25-35); MEAN CORPUSCULAR HGB CONC 32 g/dL (31-37); MEAN CORPUSCULAR VOLUME 84 fL (79-100); MONO # 0.1 x10^3/uL (0.0-1.1); MONO % 1 % (0-9); NEUT # 7.6 x10^3uL (1.8-7.7); NEUT % 93 % (31-73); PLATELET COUNT 276 x10^3/uL (140-400); RED BLOOD COUNT 4.19 x10^6/uL (3.50-5.40); WHITE BLOOD COUNT 8.2 x10^3/uL (4.0-11.0)
[2018-08-08 06:12] LABS: CALCIUM 8.7 mg/dL (8.5-10.1); CREATININE 1.3 mg/dL (0.6-1.0); GFR 42.5; POTASSIUM 3.9 mmol/L (3.5-5.1)
[2018-08-08 07:00] VITALS: BP 112/51
[2018-08-08] MEDS: IPRATRPIUM/ALBUTEROL 0.5/2.5MG 3 ML NEBU. NEB SCH ×4 (07:51→18:54)
[2018-08-08 08:39] LABS: % BANDS 5 % (0-9); % LYMPHS 6 % (24-48); % MONOS 1 % (0-10); % SEGS 88 % (35-66); PLT ESTIMATE ADEQUATE (ADEQUATE)
[2018-08-08 08:40] LABS: ANISOCYTOSIS SLIGHT; OVALOCYTES FEW
--- NOTE | 2018-08-08 10:47 | EKG ---
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
[2018-08-08 11:00] VITALS: BP 136/71
[2018-08-08] MEDS ORDERED: DEXTROSE 50% 25 GM / 50ML DISP.SYRIN. IV PRN (11:45)
--- NOTE | 2018-08-08 12:57 | HP ---
ADMIT DATE: 08/07/2018 CHIEF COMPLAINT: Chest pain. HISTORY OF PRESENT ILLNESS: The patient is a pleasant 57-year-old female, well known to my service. She is from [facility] and speaks very little Khmer, but actually does speak Chu[place]ese. Per her granddaughter, the patient is complaining of chest discomfort, started last night. She has some generalized fatigue, rates this 7/10, causes some anxiety. She tried taking some home meds, but that did not work. She describes it as irritating. I discussed the case with ER physician. We are going to admit the patient and consult Cardiology. PAST MEDICAL HISTORY: Previous admissions for chest pain, anxiety, history of UTIs, history of pneumonia. ALLERGIES: None. FAMILY HISTORY: Hypertension. SOCIAL HISTORY: She does not drink, smoke or take drugs. MEDICATIONS: Reviewed, please refer to the MRAD. REVIEW OF SYSTEMS: GENERAL: No history of weight change, weakness or fevers. SKIN: No bruising, hair changes or rashes. EYES: No blurred, double or loss of vision. NOSE AND THROAT: No history of nosebleeds, hoarseness or sore throat. HEART: She complains of chest pain.. LUNGS: She complains of cough.. GASTROINTESTINAL: Denies changes in appetite, nausea, vomiting, diarrhea or constipation. GENITOURINARY: No history of frequency, urgency, hesitancy or nocturia. NEUROLOGIC: Denies history of numbness, tingling, tremor or weakness. PSYCHIATRIC: No history of panic, anxiety or depression. ENDOCRINE: No history of heat or cold intolerance, polyuria or polydipsia. EXTREMITIES: Denies muscle weakness, joint pain, pain on walking or stiffness. PHYSICAL EXAMINATION: VITAL SIGNS: Temperature is afebrile, pulse 80, respirations 18, blood pressure 136/71, O2 sat 96% on room air. GENERAL: She is alert, cooperative. Her family is present. They are good support for her. HEART: Normal S1, S2. LUNGS: Clear to auscultation, but she does have a harsh cough. ABDOMEN: Soft, obese. EXTREMITIES: 1+ edema. SKIN: No rashes. ENDOCRINE: No thyromegaly. LYMPHATICS: No cervical nodes. HEMATOPOIETIC: No bruising. LABORATORY DATA: Hematology is normal. Her hemoglobin did drop to 11.1 this morning. Electrolytes are normal, but her anion gap was little high this morning at 18. Last night, she was at 8. Glucose was normal last night of 107, now she is up to 331. Troponin is 0. Chest x-ray negative. ASSESSMENT AND PLAN: Chest pain in a middle-aged female who has the above noted comorbidities. We will also have an incidental finding of some probable bronchitis. Overnight, she has developed an anion gap metabolic acidosis and hyperglycemia, suspect she could have some mild diabetic ketoacidosis. The patient has been admitted. We will check serial enzymes, serial EKGs. Consult Cardiology, cardiac monitoring. Start aggressive insulin therapy, IV fluids, frequent labs. Full code. PT, OT, DVT prophylaxis, flu vaccine, IV ceftriaxone. LOLITA FARRIS DO DR: SHAD/johnie JOB#: [id number] / [id number]
[2018-08-08] MEDS: IV NORMAL SALINE 1000ML BAG 1,000 ML IV SCH ×2 (13:06→23:03)
[2018-08-08 15:00] VITALS: BP 137/63
[2018-08-08 19:04] VITALS: BP 156/73
[2018-08-08] MEDS: LACTOBACILLUS RHAMNOSUS GG 1 CAPSULE. PO SCH (20:30)
[2018-08-08] MEDS ORDERED: cefTRIAXone IV Push 1 GM VIAL. IVP SCH (21:00)
[2018-08-08 23:06] VITALS: BP 125/58
[2018-08-09 03:10] VITALS: BP 136/63
[2018-08-09 05:11] LABS: BASO # 0.1 x10^3/uL (0.0-0.2); BASO % 1 % (0-3); EOS # 0.7 x10^3/uL (0.0-0.7); EOS % 8 % (0-3); HEMATOCRIT 31.8 % (36.0-47.0); HEMOGLOBIN 10.1 g/dL (12.0-15.5); LYMPH # 3.1 x10^3/uL (1.0-4.8); LYMPH % 39 % (24-48); MEAN CORPUSCULAR HEMOGLOBIN 26 pg (25-35); MEAN CORPUSCULAR HGB CONC 32 g/dL (31-37); MEAN CORPUSCULAR VOLUME 83 fL (79-100); MONO # 0.4 x10^3/uL (0.0-1.1); MONO % 5 % (0-9); NEUT # 3.7 x10^3uL (1.8-7.7); NEUT % 47 % (31-73); PLATELET COUNT 249 x10^3/uL (140-400); RED BLOOD COUNT 3.83 x10^6/uL (3.50-5.40); WHITE BLOOD COUNT 7.9 x10^3/uL (4.0-11.0)
[2018-08-09 05:43] LABS: CALCIUM 8.1 mg/dL (8.5-10.1); CREATININE 0.9 mg/dL (0.6-1.0); POTASSIUM 3.7 mmol/L (3.5-5.1)
[2018-08-09 07:00] VITALS: BP 137/76
[2018-08-09] MEDS: IPRATRPIUM/ALBUTEROL 0.5/2.5MG 3 ML NEBU. NEB SCH ×2 (08:34→11:19)
[2018-08-09] MEDS: LACTOBACILLUS RHAMNOSUS GG 1 CAPSULE. PO SCH (08:38)
[2018-08-09] MEDS: IV NORMAL SALINE 1000ML BAG 1,000 ML IV SCH (08:40)
--- NOTE | 2018-08-09 10:22 | PDOC ---
PROGRESS NOTES Chief Complaint Chief Complaint CC: Chest discomfort, fatigue Acute bronchitis Anxiety HTN History of Present Illness History of Present Illness Pt is a pleasant 57 y/o female from [facility] who speaks little Japanese. She presented with CP and was found to have acute bronchitis on further workup. Today she was seen and examined in her room. She is awake, alert and laying in her bed. Her family is visiting. It is difficult communicating due to language barrier. Her daughter is translating. She is feeling better and is ready to go home. DW her RN. Vitals Vitals Vital Signs Date Time Temp Pulse Resp B/P (MAP) Pulse Ox O2 Delivery O2 Flow Rate FiO2 08/09/18 08:36 97 Room Air 08/09/18 07:00 97.8 79 18 137/76 (96) 97.8 Physical Exam General: Alert, Oriented X3, No acute distress Heart: Regular rate, No murmurs Lungs: Clear, Other (no wheezing or crackles) Abdomen: Normal bowel sounds, Soft, No tenderness Extremities: No clubbing, No cyanosis Skin: No rashes, No significant lesion Labs LABS Laboratory Tests Test 08/08/18 11:49 08/09/18 04:15 08/09/18 07:05 Glucose (Fingerstick) 94 mg/dL (70-99) 118 mg/dL (70-99) White Blood Count 7.9 x10^3/uL (4.0-11.0) Red Blood Count 3.83 x10^6/uL (3.50-5.40) Hemoglobin 10.1 g/dL (12.0-15.5) Hematocrit 31.8 % (36.0-47.0) Mean Corpuscular Volume 83 fL (79-100) Mean Corpuscular Hemoglobin 26 pg (25-35) Mean Corpuscular Hemoglobin Concent 32 g/dL (31-37) Red Cell Distribution Width 15.0 % (11.5-14.5) Platelet Count 249 x10^3/uL (140-400) Neutrophils (%) (Auto) 47 % (31-73) Lymphocytes (%) (Auto) 39 % (24-48) Monocytes (%) (Auto) 5 % (0-9) Eosinophils (%) (Auto) 8 % (0-3) Basophils (%) (Auto) 1 % (0-3) Neutrophils # (Auto) 3.7 x10^3uL (1.8-7.7) Lymphocytes # (Auto) 3.1 x10^3/uL (1.0-4.8) Monocytes # (Auto) 0.4 x10^3/uL (0.0-1.1) Eosinophils # (Auto) 0.7 x10^3/uL (0.0-0.7) Basophils # (Auto) 0.1 x10^3/uL (0.0-0.2) Sodium Level 141 mmol/L (136-145) Potassium Level 3.7 mmol/L (3.5-5.1) Chloride Level 106 mmol/L (98-107) Carbon Dioxide Level 27 mmol/L (21-32) Anion Gap 8 (6-14) Blood Urea Nitrogen 13 mg/dL (7-20) Creatinine 0.9 mg/dL (0.6-1.0) Estimated GFR (Cockcroft-Gault) 65.0 Glucose Level 117 mg/dL (70-99) Calcium Level 8.1 mg/dL (8.5-10.1) Review of Systems Review of Systems Gen: denies fever, chills Heart: denies CP, palp Lung: less SOA, denies cough Abd: denies N/V/D Assessment and Plan Assessmemt and Plan Assessment: CC: Chest discomfort, fatigue Acute bronchitis Anxiety HTN Plan: Script for Augmentin 875 BID and Combivent left with RN ILIA Williamson IVF PT/OT Daily labs Home meds Appreciate subspecialist input Probable D/C today if okay by subspecialist Comment Review of Relevant I have reviewed the following items rodney (where applicable) has been applied. Labs Laboratory Tests Test 08/07/18 18:52 08/07/18 19:44 08/07/18 20:29 08/08/18 03:00 White Blood Count 9.7 x10^3/uL (4.0-11.0) 8.2 x10^3/uL (4.0-11.0) Red Blood Count 4.79 x10^6/uL (3.50-5.40) 4.19 x10^6/uL (3.50-5.40) Hemoglobin 12.9 g/dL (12.0-15.5) 11.1 g/dL (12.0-15.5) Hematocrit 39.3 % (36.0-47.0) 35.1 % (36.0-47.0) Mean Corpuscular Volume 82 fL (79-100) 84 fL (79-100) Mean Corpuscular Hemoglobin 27 pg (25-35) 27 pg (25-35) Mean Corpuscular Hemoglobin Concent 33 g/dL (31-37) 32 g/dL (31-37) Red Cell Distribution Width 14.8 % (11.5-14.5) 15.0 % (11.5-14.5) Platelet Count 332 x10^3/uL (140-400) 276 x10^3/uL (140-400) Neutrophils (%) (Auto) 51 % (31-73) 93 % (31-73) Lymphocytes (%) (Auto) 34 % (24-48) 7 % (24-48) Monocytes (%) (Auto) 6 % (0-9) 1 % (0-9) Eosinophils (%) (Auto) 9 % (0-3) 0 % (0-3) Basophils (%) (Auto) 1 % (0-3) 0 % (0-3) Neutrophils # (Auto) 5.0 x10^3uL (1.8-7.7) 7.6 x10^3uL (1.8-7.7) Lymphocytes # (Auto) 3.3 x10^3/uL (1.0-4.8) 0.5 x10^3/uL (1.0-4.8) Monocytes # (Auto) 0.6 x10^3/uL (0.0-1.1) 0.1 x10^3/uL (0.0-1.1) Eosinophils # (Auto) 0.8 x10^3/uL (0.0-0.7) 0.0 x10^3/uL (0.0-0.7) Basophils # (Auto) 0.1 x10^3/uL (0.0-0.2) 0.0 x10^3/uL (0.0-0.2) Sodium Level 140 mmol/L (136-145) 140 mmol/L (136-145) Potassium Level 3.7 mmol/L (3.5-5.1) 3.9 mmol/L (3.5-5.1) Chloride Level 102 mmol/L (98-107) 103 mmol/L (98-107) Carbon Dioxide Level 30 mmol/L (21-32) 19 mmol/L (21-32) Anion Gap 8 (6-14) 18 (6-14) Blood Urea Nitrogen 11 mg/dL (7-20) 14 mg/dL (7-20) Creatinine 0.8 mg/dL (0.6-1.0) 1.3 mg/dL (0.6-1.0) Estimated GFR (Cockcroft-Gault) 74.5 42.5 BUN/Creatinine Ratio 14 (6-20) Glucose Level 107 mg/dL (70-99) 331 mg/dL (70-99) Calcium Level 9.2 mg/dL (8.5-10.1) 8.7 mg/dL (8.5-10.1) Magnesium Level 2.5 mg/dL (1.8-2.4) Total Bilirubin 0.6 mg/dL (0.2-1.0) Aspartate Amino Transf (AST/SGOT) 16 U/L (15-37) Alanine Aminotransferase (ALT/SGPT) 20 U/L (14-59) Alkaline Phosphatase 153 U/L (46-116) Troponin I Quantitative < 0.017 ng/mL (0.000-0.055) Total Protein 9.2 g/dL (6.4-8.2) Albumin 3.6 g/dL (3.4-5.0) Albumin/Globulin Ratio 0.6 (1.0-1.7) Lactic Acid Level 1.7 mmol/L (0.4-2.0) Influenza Type A Antigen Negative (NEGATIVE) Influenza Type B Antigen Negative (NEGATIVE) Urine Collection Type Unknown Urine Color Yellow Urine Clarity Clear Urine pH 6.5 Urine Specific Wallace 1.020 Urine Protein Negative mg/dL (NEG-TRACE) Urine Glucose (UA) Negative mg/dL (NEG) Urine Ketones (Stick) Negative mg/dL (NEG) Urine Blood Moderate (NEG) Urine Nitrite Positive (NEG) Urine Bilirubin Negative (NEG) Urine Urobilinogen Dipstick 1.0 mg/dL (0.2 mg/dL) Urine Leukocyte Esterase Small (NEG) Urine RBC Occ /HPF (0-2) Urine WBC 11-20 /HPF (0-4) Urine Squamous Epithelial Cells Occ /LPF Urine Bacteria Many /HPF (0-FEW) Urine Mucus Mod /LPF Segmented Neutrophils % 88 % (35-66) Band Neutrophils % 5 % (0-9) Lymphocytes % 6 % (24-48) Monocytes % 1 % (0-10) Platelet Estimate Adequate (ADEQUATE) Anisocytosis Slight Ovalocytes Few Test 08/08/18 11:49 08/09/18 04:15 08/09/18 07:05 Glucose (Fingerstick) 94 mg/dL (70-99) 118 mg/dL (70-99) White Blood Count 7.9 x10^3/uL (4.0-11.0) Red Blood Count 3.83 x10^6/uL (3.50-5.40) Hemoglobin 10.1 g/dL (12.0-15.5) Hematocrit 31.8 % (36.0-47.0) Mean Corpuscular Volume 83 fL (79-100) Mean Corpuscular Hemoglobin 26 pg (25-35) Mean Corpuscular Hemoglobin Concent 32 g/dL (31-37) Red Cell Distribution Width 15.0 % (11.5-14.5) Platelet Count 249 x10^3/uL (140-400) Neutrophils (%) (Auto) 47 % (31-73) Lymphocytes (%) (Auto) 39 % (24-48) Monocytes (%) (Auto) 5 % (0-9) Eosinophils (%) (Auto) 8 % (0-3) Basophils (%) (Auto) 1 % (0-3) Neutrophils # (Auto) 3.7 x10^3uL (1.8-7.7) Lymphocytes # (Auto) 3.1 x10^3/uL (1.0-4.8) Monocytes # (Auto) 0.4 x10^3/uL (0.0-1.1) Eosinophils # (Auto) 0.7 x10^3/uL (0.0-0.7) Basophils # (Auto) 0.1 x10^3/uL (0.0-0.2) Sodium Level 141 mmol/L (136-145) Potassium Level 3.7 mmol/L (3.5-5.1) Chloride Level 106 mmol/L (98-107) Carbon Dioxide Level 27 mmol/L (21-32) Anion Gap 8 (6-14) Blood Urea Nitrogen 13 mg/dL (7-20) Creatinine 0.9 mg/dL (0.6-1.0) Estimated GFR (Cockcroft-Gault) 65.0 Glucose Level 117 mg/dL (70-99) Calcium Level 8.1 mg/dL (8.5-10.1) Laboratory Tests Test 08/08/18 11:49 08/09/18 04:15 08/09/18 07:05 Glucose (Fingerstick) 94 mg/dL (70-99) 118 mg/dL (70-99) White Blood Count 7.9 x10^3/uL (4.0-11.0) Red Blood Count 3.83 x10^6/uL (3.50-5.40) Hemoglobin 10.1 g/dL (12.0-15.5) Hematocrit 31.8 % (36.0-47.0) Mean Corpuscular Volume 83 fL (79-100) Mean Corpuscular Hemoglobin 26 pg (25-35) Mean Corpuscular Hemoglobin Concent 32 g/dL (31-37) Red Cell Distribution Width 15.0 % (11.5-14.5) Platelet Count 249 x10^3/uL (140-400) Neutrophils (%) (Auto) 47 % (31-73) Lymphocytes (%) (Auto) 39 % (24-48) Monocytes (%) (Auto) 5 % (0-9) Eosinophils (%) (Auto) 8 % (0-3) Basophils (%) (Auto) 1 % (0-3) Neutrophils # (Auto) 3.7 x10^3uL (1.8-7.7) Lymphocytes # (Auto) 3.1 x10^3/uL (1.0-4.8) Monocytes # (Auto) 0.4 x10^3/uL (0.0-1.1) Eosinophils # (Auto) 0.7 x10^3/uL (0.0-0.7) Basophils # (Auto) 0.1 x10^3/uL (0.0-0.2) Sodium Level 141 mmol/L (136-145) Potassium Level 3.7 mmol/L (3.5-5.1) Chloride Level 106 mmol/L (98-107) Carbon Dioxide Level 27 mmol/L (21-32) Anion Gap 8 (6-14) Blood Urea Nitrogen 13 mg/dL (7-20) Creatinine 0.9 mg/dL (0.6-1.0) Estimated GFR (Cockcroft-Gault) 65.0 Glucose Level 117 mg/dL (70-99) Calcium Level 8.1 mg/dL (8.5-10.1) Microbiology 08/08/18 Blood Culture - Preliminary, Resulted NO GROWTH AFTER 1 DAY Medications Current Medications Albuterol/ Ipratropium (Duoneb) 3 ml 1X ONCE NEB Last administered on at 19:52; Start 08/07/18 at 19:15; Stop 08/07/18 at 19:16; Status DC Prednisone (Prednisone) 50 mg 1X ONCE PO Last administered on 08/07/18at 19:26; Start 08/07/18 at 19:15; Stop 08/07/18 at 19:16; Status DC Sodium Chloride 500 ml @ 500 mls/hr 1X ONCE IV ; Start 08/07/18 at 19:15; Stop 08/07/18 at 19:17; Status DC Fentanyl Citrate (Fentanyl 2ml Vial) 25 mcg 1X ONCE IV Last administered on 08/07/18at 19:26; Start 08/07/18 at 19:15; Stop 08/07/18 at 19:16; Status DC Sodium Chloride 1,000 ml @ 1,000 mls/hr 1X ONCE IV Last administered on at 19:25; Start 08/07/18 at 19:30; Stop 08/07/18 at 20:29; Status DC Albuterol/ Ipratropium (Duoneb) 3 ml 1X ONCE CONT NEB ; Start 08/07/18 at 20:00 ; Stop 08/07/18 at 20:01; Status Cancel Albuterol Sulfate (Ventolin Neb Soln) 10 mg 1X ONCE CONT NEB Last administered on 08/07/18at 20:32; Start 08/07/18 at 20:00; Stop 08/07/18 at 20:01; Status DC Ceftriaxone Sodium (Rocephin) 1 gm 1X ONCE IVP Last administered on 08/07/18at 21:35; Start 08/07/18 at 21:30; Stop 08/07/18 at 21:31; Status DC Azithromycin 250 ml @ 250 mls/hr 1X ONCE IV Last administered on 08/07/18 21: 35; Start 08/07/18 at 21:30; Stop 08/07/18 at 22:29; Status DC Acetaminophen (Tylenol) 650 mg PRN Q4HRS PRN PO FEVER Last administered on 16:03; Start 08/07/18 at 21:30; Stop 08/08/18 at 21:29; Status DC Albuterol/ Ipratropium (Duoneb) 3 ml RTQID NEB Last administered on 08/09/18 08 :34; Start 08/08/18 at 08:00 Influenza Virus Vaccine (Afluria Trivalent [id number] Syringe) 0.5 ml ONCE ONCE VAX IM Last administered on 08/08/18 08:22; Start 08/08/18 at 09:00; Stop at 09:01; Status DC Dextrose (Dextrose 50%-Water Syringe) 12.5 gm PRN Q15MIN PRN IV SEE COMMENTS; Start 08/08/18 at 11:45 Sodium Chloride 1,000 ml @ 100 mls/hr Q10H IV Last administered on 08/09/18 08 :40; Start 08/08/18 at 12:30 Ceftriaxone Sodium (Rocephin) 1 gm Q24H IVP Last administered on 08/08/18 20:31 ; Start 08/08/18 at 21:00 Lactobacillus Rhamnosus (Culturelle) 1 cap BID PO Last administered on 08:38; Start 08/08/18 at 21:00 Active Scripts Active Vitals/I & O Vital Sign - Last 24 Hours 08/08/18 08/08/18 08/08/18 08/08/18 11:00 11:59 15:00 15:27 Temp 98.1 97.7 98.1 97.7 Pulse 89 91 Resp 18 18 B/P (MAP) 136/71 (92) 137/63 (87) Pulse Ox 96 93 97 O2 Delivery Room Air Room Air Room Air Room Air 08/08/18 08/08/18 08/08/18 08/08/18 18:55 19:04 19:04 23:06 Temp 97.6 97.8 97.6 97.8 Pulse 95 85 Resp 18 18 B/P (MAP) 156/73 (100) 125/58 (80) Pulse Ox 95 95 O2 Delivery Room Air Room Air Room Air Room Air 08/09/18 08/09/18 08/09/18 08/09/18 03:10 07:00 08:00 08:36 Temp 98.7 97.8 98.7 97.8 Pulse 85 79 Resp 18 18 B/P (MAP) 136/63 (87) 137/76 (96) Pulse Ox 92 93 97 O2 Delivery Room Air Room Air Room Air Room Air Intake and Output 08/08/18 08/08/18 08/09/18 14:59 22:59 06:59 Output Total 0 ml 0 ml Balance 0 ml 0 ml LOLITA FARRIS III DO Aug 09, 2018 10:22
[2018-08-09 11:00] VITALS: BP 146/91
--- NOTE | 2018-08-09 15:04 | DS ---
DATE OF DISCHARGE: 08/09/2018 ADMISSION DIAGNOSES: Bronchitis, chest pain. DISCHARGE DIAGNOSES: Resolving bronchitis, resolving atypical chest pain, history of anxiety, urinary tract infections, pneumonia, hypertension. CONSULTS: Pulmonary, Dr. Valentine. PROCEDURES: None. HOSPITAL COURSE: The patient is a pleasant middle-aged female from [facility]. She is well known to our service. We admit her once every few months. This time, she presented with some chest pain. We admitted the patient, consulted Pulmonary because she seemed to have some bronchitis. I did give her IV antibiotics and breathing treatments. This morning when I saw and examined her, her heart tones were normal, her lungs were clear, she was smiling. She is doing great. I plan to discharge on p.o. antibiotics. I left a script for Augmentin 875 b.i.d. and Combivent metered dose inhaler. We plan to discharge if okay with Dr. Valentine. DISPOSITION: Home. ACTIVITY: As tolerated. DIET: Low sodium. MEDICATIONS: Please see the MRAD. TOTAL TIME: 34 minutes. LOLITA FARRIS DO DR: SHAD/johnie JOB#: [id number] / [id number]
--- NOTE | 2018-08-10 06:20 | CONS ---
DATE OF CONSULTATION: 08/09/2018 ATTENDING PHYSICIAN: Dr. Mercer. REASON FOR CONSULTATION: The patient is seen in pulmonary consultation at the request of Dr. Mercer for wheezing, possible asthma. HISTORY OF PRESENT ILLNESS: The patient is a 57-year-old female that presented with some chest discomfort. I was asked to see her in consultation as a result of wheezing, cough and possible asthma. Family members are at the bedside. She is originally from [facility]. She has never smoked. There is no prior history of asthma. She does wheeze. She does intake caffeinated beverages most of the day. No history of allergies. No previous allergy testing or immunotherapy. Cough is productive of discolored sputum in the past. She has attempted p.r.n. albuterol. PAST MEDICAL HISTORY: Prior UTIs, prior pneumonia. There is a history of chest pain and anxiety. ALLERGIES: No known drug allergies. FAMILY HISTORY: Hypertension. SOCIAL HISTORY: She has never smoked. REVIEW OF SYSTEMS: As indicated above. Otherwise, a 10-point system was reviewed and negative. PHYSICAL EXAMINATION: VITAL SIGNS: Stable. O2 saturation on room air was greater than 92%. HEENT: Eyes: The sclerae were nonicteric. NECK: Jugular venous distention was not elevated. No lymphadenopathy. CHEST: Full expansion. LUNGS: Coarse breath sounds, expiratory wheeze. CARDIOVASCULAR: Regular rate and rhythm with S1, S2, no S3. ABDOMEN: Soft, nontender, nondistended. EXTREMITIES: No clubbing, cyanosis or edema. NEUROLOGIC: The patient was awake, alert, following commands. A detailed neuro exam was not performed. LABORATORY DATA: Reviewed. White count was normal. Hemoglobin and hematocrit were noted. Chest x-ray normal. IMPRESSION: 1. Acute onset asthma. 2. Gastroesophageal reflux, cough. 3. Cough secondary to above. PLAN: 1. Okay to discharge home on Symbicort daily 160 two puffs b.i.d. 2. Albuterol p.r.n. 3. The patient instructed on discontinuing all caffeinated beverages to avoid reflux. 4. Pepcid [id number]. As indicated above, the patient's respiratory status is compensated. Okay to discharge home today. Follow up in the [facility]. Please let me know if I could be of any further assistance. I will sign off. PEMA COHEN MD DR: Teri JOB#: [id number] / [id number]
== END 2018-08-09 15:10 | disposition home or self-care (01) | DRG 202 ==
LOC: ER 18:39 → 2 SOUTH 20:50
PROVIDERS: ADMIT Internal Medicine; ATTEND Internal Medicine
DX: J20.9 Acute bronchitis, unspecified (principal); E87.2 Acidosis; F41.9 Anxiety disorder, unspecified; I10 Essential (primary) hypertension; J45.909 Unspecified asthma, uncomplicated; K21.9 Gastro-esophageal reflux disease without esophagitis; Z82.49 Family history of ischemic heart disease and other diseases of the circulatory system; Z87.440 Personal history of urinary (tract) infections; Z87.01 Personal history of pneumonia (recurrent)
CPT/HCPCS: 36415; 71046; 80048; 80053; 81001; 82962; 83605; 83735; 84484; 85007; 85025; 87040; 87086; 87186; 87804; 90471; 90756; 93005; 94640; 94645; 96361; 96365; 96375; J0456; J0696; J3010; J7030; J7512; J7613; J7620; 99285-25; Q2035

== ENCOUNTER 2019-02-05 18:48 | Emergency (ER) | payer SELFPAY ==
[~2019-02-05] VITALS: Ht 167.6 cm; Wt 86.2 kg
[2019-02-05] MEDS ORDERED: IV NORMAL SALINE 1000ML BAG 1,000 ML IV SCH (19:57)
[2019-02-05] MEDS ORDERED: IPRATRPIUM/ALBUTEROL 0.5/2.5MG 3 ML NEBU. NEB ONE (20:00)
--- NOTE | 2019-02-05 20:01 | PHYS DOC ---
Past Medical History Past Medical History: Asthma Past Surgical History: No Surgical History Alcohol Use: None Drug Use: None Adult General Chief Complaint Chief Complaint: SHORTNESS OF BREATH HPI HPI Patient is a 58-year-old female who presents with complaint of cough and shortness of breath is been going on for the last several days. Patient started with cough about a week ago and over the last 4 days cough is gotten productive and she has progressively developed shortness of breath. Shortness of breath is worsened with exertion. Patient is not aware of any fever. She states the cough is productive of yellow sputum. Patient states that she is getting some soreness in her chest associated with the coughing. She denies any abdominal pain, vomiting or diarrhea. Patient states that nothing is improving her symptoms.[] Review of Systems Review of Systems Constitutional: Denies fever or chills [] Respiratory: Positive productive cough and shortness of breath [] Cardiovascular: No additional information not addressed in HPI [] GI: Denies abdominal pain, nausea, vomiting or diarrhea [] Integument: Denies rash or skin lesions [] Neurologic: Denies headache, focal weakness or sensory changes [] All other systems were reviewed and found to be within normal limits, except as documented in this note. Current Medications Current Medications Current Medications Medications (Trade) Dose Ordered Sig/Beverly Start Time Stop Time Status Last Admin Dose Admin Albuterol/ Ipratropium (Duoneb) 3 ml 1X ONCE 02/05/19 20:00 02/05/19 20:10 DC 02/05/19 20:02 3 ML Azithromycin (Zithromax) 500 mg 1X ONCE 02/05/19 21:30 02/05/19 21:31 DC 02/05/19 21:17 500 MG Ceftriaxone Sodium (Rocephin) 1 gm 1X ONCE 02/05/19 21:30 02/05/19 21:31 DC 02/05/19 21:17 1 GM Oseltamivir Phosphate (Tamiflu) 75 mg 1X ONCE 02/05/19 21:30 02/05/19 21:31 DC 02/05/19 21:17 75 MG Sodium Chloride 1,000 ml @ 1,000 mls/hr Q1H 02/05/19 19:57 02/05/19 20:56 DC 02/05/19 20:19 1,000 MLS/HR Allergies Allergies Allergies Coded Allergies Type Severity Reaction Last Updated Verified No Known Drug Allergies 11/2/18 No Physical Exam Physical Exam Constitutional: Well developed, well nourished, no acute distress, non-toxic appearance. [] HENT: Normocephalic, atraumatic, bilateral external ears normal, oropharynx dry, no oral exudates, nose normal. [] Eyes: PERRLA, EOMI, conjunctiva normal, no discharge. [] Neck: Normal range of motion, no tenderness, supple, no stridor. [] Cardiovascular:Heart rate regular rhythm, no murmur [] Lungs & Thorax: Fine rhonchi are noted to auscultation bilaterally [] Abdomen: Bowel sounds normal, soft, no tenderness. [] Skin: Warm, dry, no erythema, no rash. [] Extremities: No tenderness, no cyanosis, no clubbing, ROM intact, no edema. [] Neurologic: Awake and alert, no focal deficits noted. [] Current Patient Data Vital Signs Vital Signs Date Time Temp Pulse Resp B/P (MAP) Pulse Ox O2 Delivery O2 Flow Rate FiO2 02/05/19 20:03 97 Room Air 02/05/19 19:20 98.1 87 20 200/106 (137) 98.1 Lab Values Laboratory Tests Test 02/05/19 20:10 02/05/19 20:15 White Blood Count 7.7 x10^3/uL (4.0-11.0) Red Blood Count 4.67 x10^6/uL (3.50-5.40) Hemoglobin 12.7 g/dL (12.0-15.5) Hematocrit 39.1 % (36.0-47.0) Mean Corpuscular Volume 84 fL (79-100) Mean Corpuscular Hemoglobin 27 pg (25-35) Mean Corpuscular Hemoglobin Concent 32 g/dL (31-37) Red Cell Distribution Width 15.0 % (11.5-14.5) H Platelet Count 238 x10^3/uL (140-400) Neutrophils (%) (Auto) 32 % (31-73) Lymphocytes (%) (Auto) 47 % (24-48) Monocytes (%) (Auto) 6 % (0-9) Eosinophils (%) (Auto) 14 % (0-3) H Basophils (%) (Auto) 1 % (0-3) Neutrophils # (Auto) 2.5 x10^3/uL (1.8-7.7) Lymphocytes # (Auto) 3.6 x10^3/uL (1.0-4.8) Monocytes # (Auto) 0.5 x10^3/uL (0.0-1.1) Eosinophils # (Auto) 1.1 x10^3/uL (0.0-0.7) H Basophils # (Auto) 0.0 x10^3/uL (0.0-0.2) Segmented Neutrophils % 33 % (35-66) L Band Neutrophils % 1 % (0-9) Lymphocytes % 54 % (24-48) H Monocytes % 3 % (0-10) Eosinophils % 9 % (0-5) H Platelet Estimate Adequate (ADEQUATE) D-Dimer (Kristine) 0.35 ug/mlFEU (0.00-0.50) Sodium Level 143 mmol/L (136-145) Potassium Level 4.0 mmol/L (3.5-5.1) Chloride Level 104 mmol/L (98-107) Carbon Dioxide Level 32 mmol/L (21-32) Anion Gap 7 (6-14) Blood Urea Nitrogen 13 mg/dL (7-20) Creatinine 1.1 mg/dL (0.6-1.0) H Estimated GFR (Cockcroft-Gault) 51.4 BUN/Creatinine Ratio 12 (6-20) Glucose Level 116 mg/dL (70-99) H Calcium Level 8.7 mg/dL (8.5-10.1) Total Bilirubin 0.2 mg/dL (0.2-1.0) Aspartate Amino Transferase (AST) 20 U/L (15-37) Alanine Aminotransferase (ALT) 16 U/L (14-59) Alkaline Phosphatase 138 U/L (46-116) H Troponin I Quantitative < 0.017 ng/mL (0.000-0.055) BM-Twi-D-Type Natriuretic Peptide 21 pg/mL (0-124) Total Protein 8.2 g/dL (6.4-8.2) Albumin 3.6 g/dL (3.4-5.0) Albumin/Globulin Ratio 0.8 (1.0-1.7) L Influenza Type A Antigen Negative (NEGATIVE) Influenza Type B Antigen Positive (NEGATIVE) Laboratory Tests 02/05/19 20:10 Laboratory Tests 02/05/19 20:10 EKG EKG [] Radiology/Procedures Radiology/Procedures [] Course & Med Decision Making Course & Med Decision Making Pertinent Labs and Imaging studies reviewed. (See chart for details) [] Dragon Disclaimer Dragon Disclaimer This electronic medical record was generated, in whole or in part, using a voice recognition dictation system. Departure Departure Impression: Primary Impression: Acute bronchitis Additional Impression: Influenza B Disposition: HOME, SELF-CARE Condition: STABLE Referrals: NO PCP (PCP) Patient Instructions: Bronchitis, Influenza, Adult Scripts Amoxicillin/Potassium Clav (AUGMENTIN 875-125 TABLET) 1 Each Tablet 1 TAB PO BID, #20 TAB Prov: RODO WALDEN Jr. DO 02/05/19 Oseltamivir Phosphate (TAMIFLU) 75 Mg Capsule 1 CAP PO BID, #10 CAP Prov: RODO WALDEN Jr. DO 02/05/19 Problem Qualifiers Primary Impression: Acute bronchitis Bronchitis organism: unspecified organism Qualified Codes: J20.9 - Acute bronchitis, unspecified RODO WALDEN Jr. DO Feb 05, 2019 20:01
[2019-02-05 20:28] LABS: BASO % 1 % (0-3); EOS # 1.1 x10^3/uL (0.0-0.7); EOS % 14 % (0-3); HEMATOCRIT 39.1 % (36.0-47.0); HEMOGLOBIN 12.7 g/dL (12.0-15.5); LYMPH # 3.6 x10^3/uL (1.0-4.8); LYMPH % 47 % (24-48); MEAN CORPUSCULAR HEMOGLOBIN 27 pg (25-35); MEAN CORPUSCULAR HGB CONC 32 g/dL (31-37); MEAN CORPUSCULAR VOLUME 84 fL (79-100); MONO # 0.5 x10^3/uL (0.0-1.1); MONO % 6 % (0-9); NEUT # 2.5 x10^3/uL (1.8-7.7); NEUT % 32 % (31-73); PLATELET COUNT 238 x10^3/uL (140-400); RED BLOOD COUNT 4.67 x10^6/uL (3.50-5.40); WHITE BLOOD COUNT 7.7 x10^3/uL (4.0-11.0)
[2019-02-05 20:40] LABS: CALCIUM 8.7 mg/dL (8.5-10.1); CREATININE 1.1 mg/dL (0.6-1.0); GFR 51.4
[2019-02-05 20:46] LABS: INFLUENZA A PATIENT NEGATIVE (NEGATIVE)
[2019-02-05 20:46] LABS: ALBUMIN 3.6 g/dL (3.4-5.0); ALBUMIN/GLOBULIN RATIO 0.8 (1.0-1.7); TOTAL BILIRUBIN 0.2 mg/dL (0.2-1.0); TOTAL PROTEIN 8.2 g/dL (6.4-8.2)
[2019-02-05 20:48] LABS: INFLUENZA B PATIENT POSITIVE (NEGATIVE)
[2019-02-05 20:51] LABS: % BANDS 1 % (0-9); % EOS 9 % (0-5); % LYMPHS 54 % (24-48); % MONOS 3 % (0-10); % SEGS 33 % (35-66); PLT ESTIMATE ADEQUATE (ADEQUATE)
[2019-02-05] MEDS ORDERED: OSELTAMIVIR 75 MG CAPSULE PO ONE (21:30)
[2019-02-05] MEDS ORDERED: AZITHROMYCIN 250 MG TABLET. PO ONE (21:30)
[2019-02-05] MEDS ORDERED: cefTRIAXone IV Push 1 GM VIAL. IVP ONE (21:30)
[2019-02-05] MEDS ORDERED: AMOX1TAB61 PO (22:08)
[2019-02-05] MEDS ORDERED: OSEL75CA PO (22:08)
[2019-02-05 22:14] VITALS: BP 149/65
--- NOTE | 2019-02-05 23:33 | RAD ---
CHEST PA LATERAL INDICATION: Cough, dyspnea. COMPARISON STUDY: 08/07/2018. FINDINGS: Lungs: Normal lung volume. No pulmonary mass or consolidation. Pleura: No pleural effusion or pneumothorax. Heart and Mediastinum: Stable cardiomediastinal silhouette and great vessels. Bones and Soft Tissues: Right convex thoracic curvature. Multilevel degenerative disc disease. IMPRESSION: No consolidation. Electronically signed by: Júnior Becker MD (02/05/2019 11:30 PM) [facility]
--- NOTE | 2019-02-08 04:24 | EKG ---
[facility] [address] [place] [address] Test Date: 2019-02-05 Test Time: 20:07:50 Pat Name: JEFFREY SILVA Department: Room: Gender: F [employer] Operator: : [id number] Requested By: RODO WALDEN Order Number: [id number] Reading MD: Measurements Intervals [place] Rate: 77 P: 54 ND: 132 QRS: 59 QRSD: 96 T: 40 QT: 376 QTc: 427 Interpretive Statements SINUS RHYTHM NORMAL ECG RI6.01 Unconfirmed report No previous ECG available for comparison
== END 2019-02-05 22:32 | disposition home or self-care (01) ==
LOC: ER 19:48 → EDBD 19:48 → ER 22:32
DX: J20.8 Acute bronchitis due to other specified organisms (principal); J10.1 Influenza due to other identified influenza virus with other respiratory manifestations; J45.909 Unspecified asthma, uncomplicated
CPT/HCPCS: 36415; 71046; 80053; 83880; 84484; 85007; 85025; 85379; 87804; 93005; 94640; 96374; 99285; J0696; J7030; J7620; Q0144

== ENCOUNTER 2019-02-18 17:24 | Emergency (ER) | payer SELFPAY ==
[~2019-02-18] VITALS: Ht 165.1 cm; Wt 68.0 kg
[~2019-02-18 17:24] MED LIST changes: +AMOX1TAB61 PO; +OSEL75CA PO
[2019-02-18 17:54] VITALS: BP 151/85
[2019-02-18] MEDS ORDERED: ALBUTEROL SULFATE 2.5 MG/3 ML NEBU. NEB ONE (18:30)
[2019-02-18] MEDS ORDERED: IPRATRPIUM/ALBUTEROL 0.5/2.5MG 3 ML NEBU. NEB ONE (18:30)
[2019-02-18] MEDS ORDERED: methylPREDNISolone SOD SUCC PF 125 MG/2 ML VIAL. IM ONE (18:30)
[2019-02-18] MEDS ORDERED: ALBU2.5V8 INH (19:35)
[2019-02-18] MEDS ORDERED: PRED50TA PO (19:39)
--- NOTE | 2019-02-18 19:40 | PHYS DOC ---
Past Medical History Past Medical History: Asthma Past Surgical History: No Surgical History Alcohol Use: None Drug Use: None Adult General Chief Complaint Chief Complaint: ASTHMA HPI HPI Patient is a 58 year old female, accompanied by her daughter, who presents to the emergency department with complaints of problems with her asthma that started yesterday. SHe complains of chest congestion, wheezing, chest tightness, and a productive cough with yellow sputum. She states she has been out of her inhaler for quite some time. Patient denies any chest pain or palpitations. She currently denies any pain at all. Patient's daughter translated for patient as she is non-Botswanan speaking. Review of Systems Review of Systems Constitutional: Denies fever or chills [] Eyes: Denies change in visual acuity, redness, or eye pain [] HENT: Denies nasal congestion or sore throat [] Respiratory: See history of present illness Cardiovascular: No additional information not addressed in HPI [] GI: Denies abdominal pain, nausea, vomiting, or diarrhea [] : Denies dysuria or hematuria [] Musculoskeletal: Denies back pain or joint pain [] Integument: Denies rash or skin lesions [] Neurologic: Denies headache Complete systems were reviewed and found to be within normal limits, except as documented in this note. Current Medications Current Medications Current Medications Medications (Trade) Dose Ordered Sig/Beverly Start Time Stop Time Status Last Admin Dose Admin Albuterol Sulfate (Ventolin Neb Soln) 2.5 mg 1X ONCE 02/18/19 18:30 02/18/19 18:31 DC 02/18/19 18:08 2.5 MG Albuterol/ Ipratropium (Duoneb) 3 ml 1X ONCE 02/18/19 18:30 02/18/19 18:31 DC 02/18/19 18:08 3 ML Methylprednisolone Sodium Succinate (SOLU-Medrol 125MG VIAL) 125 mg 1X ONCE 02/18/19 18:30 02/18/19 18:31 DC 02/18/19 19:03 125 MG Allergies Allergies Allergies Coded Allergies Type Severity Reaction Last Updated Verified No Known Drug Allergies 04/10/18 No Physical Exam Physical Exam Constitutional: Well developed, well nourished, no acute distress, non-toxic appearance. [] HENT: Normocephalic, atraumatic, bilateral external ears normal, bilateral TMs normal, oropharynx moist, no oral exudates, nose normal. [] Eyes: PERRLA, EOMI, conjunctiva normal, no discharge. [] Neck: Normal range of motion, no tenderness, supple, no stridor. [] Cardiovascular:Heart rate regular rhythm, no murmur [] Lungs & Thorax: Bilateral breath sounds inspiratory and expiratory wheezes, no retractions, mildly increased respiratory rate of 22 Skin: Warm, dry, no erythema, no rash. [] Back: No tenderness, no CVA tenderness. [] Extremities: No cyanosis, no clubbing, ROM intact, no edema. [] Neurologic: Alert and oriented X 3, no focal deficits noted. [] Psychologic: Affect normal, judgement normal, mood normal. [] Current Patient Data Vital Signs Vital Signs Date Time Temp Pulse Resp B/P (MAP) Pulse Ox O2 Delivery O2 Flow Rate FiO2 02/18/19 18:10 94 Room Air 02/18/19 17:54 98.2 74 18 151/85 (107) 98.2 EKG EKG [] Radiology/Procedures Radiology/Procedures [] Course & Med Decision Making Course & Med Decision Making Pertinent Labs and Imaging studies reviewed. (See chart for details) dx: Acute asthma exacerbation Patient was given 125 mg of solumedrol IM, and a breathing treatment of duoneb and albuterol. Her lung sounds improved there were no more inspiratory wheezes following the breathing treatments, however, there was continued scattered expiratory wheezes. No increased work of breathing noted. Prescription is written for prednisone and Pro Air. Patient and daughter encouraged to avoid airway irritants and follow up with primary care doctor if symptoms persist, return to the ER symptoms worsen. [] Dragon Disclaimer Dragon Disclaimer This electronic medical record was generated, in whole or in part, using a voice recognition dictation system. Departure Departure Impression: Primary Impression: Acute asthma exacerbation Disposition: 01 HOME, SELF-CARE Condition: STABLE Referrals: NO PCP (PCP) Patient Instructions: Asthma Attacks, Prevention, Asthma, Adult, [id number] Additional Instructions: Fill the prescription(s) and use as directed.You may take Tylenol or ibuprofen as needed for pain/fever. Increase clear fluids. Avoid triggers such as smoke, fragrance, dust, and pollen. You may take OTC cough suppressants as needed. Follow-up with your primary care doctor if symptoms persist, return to the ER if symptoms worsen. Scripts Prednisone (PREDNISONE) 50 Mg Tablet 1 TAB PO DAILY, #5 TAB 0 Refills begin taking on 02/19/19 Prov: RADHA PRASAD APRN 02/18/19 Albuterol Sulfate (PROAIR HFA INHALER) 8.5 Gm Hfa.aer.ad 2 PUFF INH PRN Q4-6HRS PRN for SHORTNESS OF BREATH for 30 Days, #1 INHALER 1 Refill Prov: RADHA PRASAD APRN 02/18/19 Problem Qualifiers Primary Impression: Acute asthma exacerbation Asthma severity: mild Asthma persistence: intermittent Qualified Codes: J45.21 - Mild intermittent asthma with (acute) exacerbation RADHA PRASAD APRN Feb 18, 2019 19:40
== END 2019-02-18 19:56 | disposition home or self-care (01) ==
LOC: ER 17:24
DX: J45.21 Mild intermittent asthma with (acute) exacerbation (principal)
CPT/HCPCS: 94640; 96372; 99283; J2930; J7613; J7620

== ENCOUNTER 2019-03-02 23:20 | Emergency (ER) | payer SELFPAY ==
[~2019-03-02] VITALS: Ht 170.2 cm; Wt 88.0 kg
[2019-03-03 00:12] LABS: BASO # 0.1 x10^3/uL (0.0-0.2); BASO % 1 % (0-3); EOS # 1.1 x10^3/uL (0.0-0.7); EOS % 13 % (0-3); HEMATOCRIT 39.4 % (36.0-47.0); HEMOGLOBIN 12.8 g/dL (12.0-15.5); LYMPH # 2.8 x10^3/uL (1.0-4.8); LYMPH % 32 % (24-48); MEAN CORPUSCULAR HEMOGLOBIN 28 pg (25-35); MEAN CORPUSCULAR HGB CONC 33 g/dL (31-37); MEAN CORPUSCULAR VOLUME 84 fL (79-100); MONO # 0.6 x10^3/uL (0.0-1.1); MONO % 7 % (0-9); NEUT # 4.1 x10^3/uL (1.8-7.7); NEUT % 48 % (31-73); PLATELET COUNT 229 x10^3/uL (140-400); RED BLOOD COUNT 4.68 x10^6/uL (3.50-5.40); RED CELL DISTRIBUTION WIDTH 14.8 % (11.5-14.5); WHITE BLOOD COUNT 8.6 x10^3/uL (4.0-11.0)
[2019-03-03 00:21] LABS: PROTHROMBIN TIME PATIENT 12.5 SEC (11.7-14.0)
[2019-03-03 00:26] LABS: CALCIUM 9.1 mg/dL (8.5-10.1); CREATININE 0.9 mg/dL (0.6-1.0); GFR 64.8; POTASSIUM 3.9 mmol/L (3.5-5.1)
[2019-03-03 00:32] LABS: ALBUMIN 3.6 g/dL (3.4-5.0); ALBUMIN/GLOBULIN RATIO 0.9 (1.0-1.7); MAGNESIUM 2.5 mg/dL (1.8-2.4); TOTAL BILIRUBIN 0.6 mg/dL (0.2-1.0); TOTAL PROTEIN 7.8 g/dL (6.4-8.2)
[2019-03-03 00:41] LABS: % EOS 12 % (0-5); % LYMPHS 39 % (24-48); % MONOS 1 % (0-10); % SEGS 48 % (35-66); PLT ESTIMATE ADEQUATE (ADEQUATE)
[2019-03-03] MEDS ORDERED: IPRATRPIUM/ALBUTEROL 0.5/2.5MG 3 ML NEBU. NEB ONE (00:45)
--- NOTE | 2019-03-03 01:26 | PHYS DOC ---
Past Medical History Past Medical History: Asthma Past Surgical History: No Surgical History Alcohol Use: None Drug Use: None Adult General Chief Complaint Chief Complaint: MULTIPLE COMPLAINTS HPI HPI 58-year-old female presents to the emergency department with multiple complaints. She describes abdominal pain rating to her back, no nausea no vomiting, chills, cough which is nonproductive, shortness of breath. These symptoms have been ongoing �2 days. Nothing makes her symptoms worse, nothing makes her symptoms better. Patient called EMS for further evaluation in the emergency department. Family is at bedside for interpretation. Review of Systems Review of Systems Constitutional: Chills HENT: Denies nasal congestion or sore throat [] Respiratory: Cough, shortness of breath Cardiovascular: No additional information not addressed in HPI [] GI: Abdominal pain, radiation to back, no nausea or vomiting : Denies dysuria or hematuria [] Musculoskeletal: Denies back pain or joint pain [] Integument: Denies rash or skin lesions [] Neurologic: Headache All other systems were reviewed and found to be within normal limits, except as documented in this note. Current Medications Current Medications Current Medications Medications (Trade) Dose Ordered Sig/Beverly Start Time Stop Time Status Last Admin Dose Admin Albuterol/ Ipratropium (Duoneb) 3 ml 1X ONCE 03/03/19 00:45 03/03/19 00:46 DC 03/03/19 00:51 3 ML Info (CONTRAST GIVEN -- Rx MONITORING) 1 each PRN DAILY PRN 03/03/19 02:45 03/05/19 02:44 Iohexol (Omnipaque 350 Mg/ml) 100 ml 1X ONCE 03/03/19 02:30 03/03/19 02:41 DC 03/03/19 02:36 100 ML Ketorolac Tromethamine (Toradol 30mg Vial) 30 mg 1X ONCE 03/03/19 02:15 03/03/19 02:16 DC 03/03/19 02:41 30 MG Sodium Chloride 1,000 ml @ 1,000 mls/hr 1X ONCE 03/03/19 02:00 03/03/19 02:59 DC Allergies Allergies Allergies Coded Allergies Type Severity Reaction Last Updated Verified No Known Drug Allergies 04/10/18 No Physical Exam Physical Exam Constitutional: Well developed, well nourished, ill appearing HENT: Normocephalic, atraumatic, bilateral external ears normal, oropharynx moist, no oral exudates, nose normal. [] Eyes: PERRLA, EOMI, conjunctiva normal, no discharge. [] Cardiovascular:Heart rate regular rhythm, no murmur [] Lungs & Thorax: Expiratory wheeze, coarse breath sounds Abdomen: Denies abdominal tenderness, no masses or pulsatile mass. Skin: Warm, dry, no erythema, no rash. [] Back: No tenderness, no CVA tenderness. [] Extremities: No tenderness, no edema. [] Neurologic: Alert and oriented X 3, no focal deficits noted. [] Psychologic: Affect normal, judgement normal, mood normal. [] Current Patient Data Vital Signs Vital Signs Date Time Temp Pulse Resp B/P (MAP) Pulse Ox O2 Delivery O2 Flow Rate FiO2 03/03/19 01:33 82 16 139/69 (92) 96 Room Air 03/02/19 23:59 98.2 98.2 Lab Values Laboratory Tests Test 03/03/19 00:02 03/03/19 02:08 White Blood Count 8.6 x10^3/uL (4.0-11.0) Red Blood Count 4.68 x10^6/uL (3.50-5.40) Hemoglobin 12.8 g/dL (12.0-15.5) Hematocrit 39.4 % (36.0-47.0) Mean Corpuscular Volume 84 fL (79-100) Mean Corpuscular Hemoglobin 28 pg (25-35) Mean Corpuscular Hemoglobin Concent 33 g/dL (31-37) Red Cell Distribution Width 14.8 % (11.5-14.5) H Platelet Count 229 x10^3/uL (140-400) Neutrophils (%) (Auto) 48 % (31-73) Lymphocytes (%) (Auto) 32 % (24-48) Monocytes (%) (Auto) 7 % (0-9) Eosinophils (%) (Auto) 13 % (0-3) H Basophils (%) (Auto) 1 % (0-3) Neutrophils # (Auto) 4.1 x10^3/uL (1.8-7.7) Lymphocytes # (Auto) 2.8 x10^3/uL (1.0-4.8) Monocytes # (Auto) 0.6 x10^3/uL (0.0-1.1) Eosinophils # (Auto) 1.1 x10^3/uL (0.0-0.7) H Basophils # (Auto) 0.1 x10^3/uL (0.0-0.2) Segmented Neutrophils % 48 % (35-66) Lymphocytes % 39 % (24-48) Monocytes % 1 % (0-10) Eosinophils % 12 % (0-5) H Platelet Estimate Adequate (ADEQUATE) Prothrombin Time 12.5 SEC (11.7-14.0) Prothrombin Time INR 1.0 (0.8-1.1) Activated Partial Thromboplast Time 28 SEC (24-38) D-Dimer (Kristine) 0.49 ug/mlFEU (0.00-0.50) Sodium Level 142 mmol/L (136-145) Potassium Level 3.9 mmol/L (3.5-5.1) Chloride Level 105 mmol/L (98-107) Carbon Dioxide Level 31 mmol/L (21-32) Anion Gap 6 (6-14) Blood Urea Nitrogen 13 mg/dL (7-20) Creatinine 0.9 mg/dL (0.6-1.0) Estimated GFR (Cockcroft-Gault) 64.8 BUN/Creatinine Ratio 14 (6-20) Glucose Level 134 mg/dL (70-99) H Lactic Acid Level 1.8 mmol/L (0.4-2.0) Calcium Level 9.1 mg/dL (8.5-10.1) Magnesium Level 2.5 mg/dL (1.8-2.4) H Total Bilirubin 0.6 mg/dL (0.2-1.0) Aspartate Amino Transferase (AST) 14 U/L (15-37) L Alanine Aminotransferase (ALT) 21 U/L (14-59) Alkaline Phosphatase 118 U/L (46-116) H Troponin I Quantitative < 0.017 ng/mL (0.000-0.055) DM-Vil-E-Type Natriuretic Peptide 18 pg/mL (0-124) Total Protein 7.8 g/dL (6.4-8.2) Albumin 3.6 g/dL (3.4-5.0) Albumin/Globulin Ratio 0.9 (1.0-1.7) L Lipase 152 U/L (73-393) Urine Collection Type Unknown Urine Color Yellow Urine Clarity Clear Urine pH 5.5 Urine Specific [place] 1.015 Urine Protein Negative mg/dL (NEG-TRACE) Urine Glucose (UA) Negative mg/dL (NEG) Urine Ketones (Stick) Negative mg/dL (NEG) Urine Blood Trace (NEG) Urine Nitrite Negative (NEG) Urine Bilirubin Negative (NEG) Urine Urobilinogen Dipstick 0.2 mg/dL (0.2 mg/dL) Urine Leukocyte Esterase Moderate (NEG) Urine RBC Occ /HPF (0-2) Urine WBC 5-10 /HPF (0-4) Urine Squamous Epithelial Cells Mod /LPF Urine Bacteria Few /HPF (0-FEW) Urine Mucus Slight /LPF Laboratory Tests 03/03/19 00:02 Laboratory Tests 03/03/19 00:02 EKG EKG EKG reviewed normal sinus rhythm, heart rate 82, no evidence of acute ST elevation [place] appreciated.[] Interpretation Time: Interpretation time 2350 Radiology/Procedures Radiology/Procedures [facility] [address] [place] [address] IMAGING REPORT Signed PATIENT: JEFFREY SILVA ACCOUNT: [id number] : 1960 LOCATION: ER AGE: 58 SEX: F EXAM STATUS: REG ER ORD. PHYSICIAN: ROSALIE MINA MD REASON: Chest pain, radiation to back, tachypnea PROCEDURE: CT ANGIOGRAPHY CHEST CT Angio chest Indication: Chest pain, tachypnea Technique: Multiple contiguous axial images were obtained through the chest after administration of intravenous iodinated contrast. Coronal, sagittal, and 3-D MIP reformations were created. Comparison: None Findings: There is no central filling defect within the pulmonary arteries to suggest presence of pulmonary embolism. Mild patchy airspace opacities identified in the right middle lobe of the lung likely infiltrates or atelectasis. Faint airspace opacity identified in the left lung base. No evidence of pleural effusion or pneumothorax. Mild degenerative changes thoracic spine. IMPRESSION: 1.No evidence of pulmonary embolism. 2. Faint airspace opacities identified in the right middle lobe, left lower lobe lung likely pneumonia or atelectasis. Electronically signed by: Mynor Alicea MD (03/03/2019 2:52 AM) [facility] [place] and SIGNED BY: MYNOR ALICEA MD DATE: 03/03/19 0252 [] Course & Med Decision Making Course & Med Decision Making Pertinent Labs and Imaging studies reviewed. (See chart for details) []58-year-old female presents to the emergency department with multiple complaints. She describes abdominal pain rating to her back, no nausea no vomiting, chills, cough which is nonproductive, shortness of breath. These symptoms have been ongoing �2 days. Nothing makes her symptoms worse, nothing makes her symptoms better. Patient called EMS for further evaluation in the emergency department. Family is at bedside for interpretation. Labs and imaging reviewed with patient and family at bedside. White blood cell count 8.6, d-dimer 0.49, urinalysis negative for acute infection. ET of the chest reveals evidence of faint airspace disease concerning for pneumonia or developing pneumonia. Patient did have some wheezing initially with nausea treatment provided, improvement of saturations of 98%. She is resting comfortably at this time. Her pain in her chest and upper abdomen is likely associated with inflammatory process related to developing pneumonia. We'll plan for antibiotic therapy �7 days upon discharge, Ventolin inhaler will be provided as well. Return precautions discussed with patient and family at bedside. Curb 65 score 1, low risk. Cardiac enzymes �2 sets negative. Dragon Disclaimer Dragon Disclaimer This electronic medical record was generated, in whole or in part, using a voice recognition dictation system. Departure Departure Impression: Primary Impression: CAP (community acquired pneumonia) Disposition: 01 HOME, SELF-CARE Condition: STABLE Referrals: NO PCP (PCP) Patient Instructions: Pneumonia, Adult Additional Instructions: Recommend follow up with PCP 3 - 5 days Return to the ER with worsening symptoms, intractable pain, fever, altered mental status Tylenol/Motrin as needed for pain Take antibioitics as prescribed x 7 days Inhaler as prescribed Scripts Levofloxacin (LEVAQUIN) 750 Mg Tablet 1 TAB PO DAILY, #7 TAB Prov: ROSALIE MINA MD 03/03/19 Problem Qualifiers Primary Impression: CAP (community acquired pneumonia) Laterality: unspecified laterality Qualified Codes: J18.9 - Pneumonia, unspecified organism ROSALIE MINA MD Mar 03, 2019 01:26
[2019-03-03] MEDS ORDERED: IV NORMAL SALINE 1000ML BAG 1,000 ML IV ONE (02:00)
[2019-03-03 02:13] LABS: BILIRUBIN,URINE NEGATIVE (NEG); CLARITY,URINE CLEAR; COLOR,URINE YELLOW; NITRITE,URINE NEGATIVE (NEG); PH,URINE 5.5; PROTEIN,URINE NEGATIVE (NEG-TRACE); UROBILINOGEN,URINE 0.2 mg/dL (0.2 mg/dL)
[2019-03-03] MEDS ORDERED: KETOROLAC 30 MG/ML VIAL. IV ONE (02:15)
[2019-03-03 02:21] LABS: SQUAMOUS EPITHELIAL CELL,UR MOD /LPF
[2019-03-03 02:22] LABS: BACTERIA,URINE FEW /HPF (0-FEW); RBC,URINE OCC /HPF (0-2)
[2019-03-03] MEDS ORDERED: IOHEXOL 350 MG/ML 100 ML VIAL. IV ONE (02:30)
[2019-03-03] MEDS ORDERED: CONTRAST GIVEN. MC PRN (02:45)
--- NOTE | 2019-03-03 02:55 | RAD ---
CT Angio chest Indication: Chest pain, tachypnea Technique: Multiple contiguous axial images were obtained through the chest after administration of intravenous iodinated contrast. Coronal, sagittal, and 3-D MIP reformations were created. Comparison: None Findings: There is no central filling defect within the pulmonary arteries to suggest presence of pulmonary embolism. Mild patchy airspace opacities identified in the right middle lobe of the lung likely infiltrates or atelectasis. Faint airspace opacity identified in the left lung base. No evidence of pleural effusion or pneumothorax. Mild degenerative changes thoracic spine. IMPRESSION: 1.No evidence of pulmonary embolism. 2. Faint airspace opacities identified in the right middle lobe, left lower lobe lung likely pneumonia or atelectasis. Electronically signed by: Mynor Alicea MD (03/03/2019 2:52 AM) [facility]
[2019-03-03] MEDS ORDERED: LEVO750T31 PO (03:29)
[2019-03-03] MEDS ORDERED: VENTOLIN HFA18 GM INH (03:30)
[2019-03-03 03:40] VITALS: BP 139/69
--- NOTE | 2019-03-03 04:46 | RAD ---
EXAM: CHEST 1 VIEW History: Cough COMPARISON: 02/05/2019 TECHNIQUE: Single portable radiograph of the chest FINDINGS: The cardiac silhouette is unremarkable. Minimal bibasilar lung atelectasis. The costophrenic sulci are clear and well demarcated. IMPRESSION: Minimal bibasilar lung atelectasis. Electronically signed by: Mynor Alicea MD (03/03/2019 4:43 AM) [facility]
--- NOTE | 2019-03-03 07:02 | EKG ---
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
== END 2019-03-03 03:40 | disposition home or self-care (01) ==
LOC: ER 23:20
DX: J18.9 Pneumonia, unspecified organism (principal); R10.9 Unspecified abdominal pain; R51 Headache; J45.909 Unspecified asthma, uncomplicated
CPT/HCPCS: 36415; 71045; 71275; 80053; 81001; 83605; 83690; 83735; 83880; 84484; 85007; 85025; 85379; 85610; 85730; 87086; 93005; 94640; 96374; 99285; J1885; J7620; Q9967

== ENCOUNTER 2021-04-02 09:34 | Emergency (ER) | payer SELFPAY ==
[~2021-04-02] VITALS: Ht 157.5 cm; Wt 99.5 kg
[~2021-04-02 09:34] MED LIST changes: -CETI10TA22 PO; +CETI10TA74 PO; +LEVO750T31 PO
[2021-04-02] MEDS ORDERED: diphenhydrAMINE HCL 25 MG CAPSULE PO ONE (11:15)
[2021-04-02] MEDS ORDERED: DEXAMETHASONE SOD PHOS 20 MG/5 ML VIAL. IM ONE (11:15)
[2021-04-02] MEDS ORDERED: PRED20TA PO (11:30)
--- NOTE | 2021-04-02 11:31 | PHYS DOC ---
Past Medical History Past Medical History: Asthma Past Surgical History: No Surgical History Smoking Status: Never Smoker Alcohol Use: None Drug Use: None General Adult EDM: Chief Complaint: SKIN PROBLEM HPI: HPI: Patient is a 60 year old female presents to the emergency department complaining of itching and redness to her scalp after dying her hair this past Friday. Patient reports she felt some mild burning and itching that became worse over the past 2 days, states she has not taken any [id number]-[id number] or prescription medication for itching or discomfort. Patient reports she has not used this brand of hair dye in the past. Patient denies allergies to medicines, denies visual changes, denies burning to her eyes, denies shortness of breath, denies chest pains nasal or chest congestion. Patient denies other physical complaints or physical concerns, patient reports her last tetanus immunization was less than 5 years ago. Review of Systems: Review of Systems: 14 body systems of review of systems have been reviewed. See HPI for pertinent positives and negative responses, otherwise all other systems are negative, nonpertinent or noncontributory. Constitutional: Negative except as outlined in HPI above. Skin: Negative except as outlined in HPI above. Eyes: Negative except as outlined in HPI above. HENT: Negative except as outlined in HPI above. Respiratory: Negative except as outlined in HPI above. Cardiovascular: Negative except as outlined in HPI above. GI: Negative except as outlined in HPI above. : Negative except as outlined in HPI above. Musculoskeletal: Negative except as outlined in HPI above. Integument: Negative except as outlined in HPI above. Neurologic: Negative except as outlined in HPI above. Endocrine: Negative except as outlined in HPI above. Lymphatic: Negative except as outlined in HPI above. Psychiatric: Negative except as outlined in HPI above. Heart Score: C/O Chest Pain: No Risk Factors: Risk Factors: DM, Current or recent (<one month) smoker, HTN, HLP, family history of CAD, obesity. Risk Scores: Score 0 - 3: 2.5% MACE over next 6 weeks - Discharge Home Score 4 - 6: 20.3% MACE over next 6 weeks - Admit for Clinical Observation Score 7 - 10: 72.7% MACE over next 6 weeks - Early Invasive Strategies Allergies: Allergies: Allergies Coded Allergies Type Severity Reaction Last Updated Verified No Known Drug Allergies 04/10/18 No Physical Exam: PE: Constitutional: Well developed, well nourished, no acute distress, non-toxic appearance. 60-year-old female in no apparent distress. HENT: Normocephalic, atraumatic. Eyes: Conjunctiva normal, no discharge. Neck: Normal range of motion, no stridor. Cardiovascular: No cyanosis appreciated, distal cap refill less than 2 seconds. Lungs & Thorax: Patient is in no respiratory distress, no audible adventitious lung sounds appreciated. Abdomen: Nontender, no abnormalities noted. Skin: Warm, dry, no erythema, no rash. Erythema with redness, excoriation with scant serous weeping to scalp along hairline. Back: No tenderness, no deformities. Extremities: No tenderness, no cyanosis, no clubbing, ROM intact, no edema. Neurologic: Alert and oriented X 3, normal motor function, normal sensory function, no focal deficits noted. Psychologic: Affect normal, judgement normal, mood normal. Current Patient Data: Vital Signs: Vital Signs Date Time Temp Pulse Resp B/P (MAP) Pulse Ox O2 Delivery O2 Flow Rate FiO2 04/02/21 10:44 97.8 82 16 190/79 (116) 96 Room Air 97.8 EKG: EKG: [] Radiology/Procedures: Radiology/Procedures: [] Course & Med Decision Making: Course & Med Decision Making Pertinent Labs and Imaging studies reviewed. (See chart for details) 60-year-old female, vital signs reviewed, presents emergency department concerning itchy inflamed scalp after using hair dye 2 days ago. Patient's physical examination consistent with contact dermatitis most likely from new hair dye as patient reports she has not used this brand in the past. Will treat pruritus with Benadryl, contact dermatitis with IM dexamethasone, will prescribe steroid regimen at home. Strict follow-up with primary care soon, continue to take [id number] Benadryl for recurring itching. Discussed with patient not using this brand of hair dye in the future. Patient gave verbal understanding of and is amenable to ED discharge planning Discussed with the patient all findings and diagnostic testing as well as the need to follow-up with their primary care provider for further evaluation and treatment or return to the ED if any new or worsening symptoms. Strict return precautions were also discussed at length, the patient voiced understanding and agreement with the discharge planning. The patient was nontoxic in appearance, in no apparent distress, and hemodynamically stable at the time of disposition. Dragon Disclaimer: Dragon Disclaimer: This electronic medical record was generated, in whole or in part, using a voice recognition dictation system. Departure Departure Impression: Primary Impression: Contact dermatitis Qualified Codes: L24.5 - Irritant contact dermatitis due to other chemical products Disposition: HOME / SELF CARE / HOMELESS Condition: GOOD Referrals: NO PCP (PCP) Patient Instructions: Contact Dermatitis Additional Instructions: You were seen today in the emergency department for rash and itching to your scalp after using a new hair dye. You were diagnosed today with contact dermatitis. As we discussed do not use this hair dye in the future. You were treated today in the emergency department with an intramuscular injection of a steroid, and an oral Benadryl for itching. Please obtain vqci-ief-miedyqy Benadryl at your pharmacy as your itching will most likely return and you will need to take more, you may take 1-2 lmdj-kvy-fimbckg tablets every 6 hours as needed for recurring itching. I have prescribed for you an oral steroid, please take as directed until complete. I have provided you a list of area primary health care providers and doctors to follow-up with soon, please choose 1 to see soon for reevaluation of your contact dermatitis of your scalp. Return to the emergency department for worsening symptoms or other concerns. Thank you for visiting our Emergency Department. It was a pleasure taking care of you today in the emergency department and we appreciate you trusting us with your care. If any additional problems come up don't hesitate to return to visit us. Please follow up with your primary care provider so they can plan additional care if needed and know about the problem that you had. If symptoms worsen come back to the Emergency Department. Any concerning symptoms that start such as chest pain, shortness of air, weakness or numbness on one side of the body, running high fevers or any other concerning symptoms return to the ER. Scripts Prednisone (PREDNISONE) 20 Mg Tablet 60 MG PO DAILY for contact dermatitis for 14 Days, #42 TAB 0 Refills Prov: ZAIRAEliseREN APRN 04/02/21 REN REARDON APRN Apr 02, 2021 11:30
[2021-04-02 11:39] VITALS: BP 196/85
== END 2021-04-02 11:39 | disposition home or self-care (01) ==
LOC: ER 09:34
DX: L24.5 Irritant contact dermatitis due to other chemical products (principal); J45.909 Unspecified asthma, uncomplicated
CPT/HCPCS: 96372; 99283; J1100; Q0163

== ENCOUNTER 2021-10-04 08:40 | Emergency (ER) | payer SELFPAY ==
[~2021-10-04] VITALS: Ht 165.1 cm; Wt 90.9 kg
[2021-10-04] MEDS ORDERED: fentaNYL PF VIAL 100 MCG/2 ML VIAL IVP ONE (09:45)
[2021-10-04] MEDS ORDERED: ONDANSETRON PF 4 MG/2 ML VIAL. IVP ONE (09:45)
[2021-10-04] MEDS ORDERED: IV NORMAL SALINE 1000ML BAG 1,000 ML IV ONE (09:45)
--- NOTE | 2021-10-04 10:09 | PHYS DOC ---
Past Medical History Past Medical History: Asthma (JOSE MAC APRN) Past Surgical History: No Surgical History (JOSE MAC APRN) Smoking Status: Never Smoker Alcohol Use: None Drug Use: None (JOSE MAC APRN) General Adult EDM: Chief Complaint: EYE PROBLEMS HPI: HPI: Patient is a 60-year-old female who presents today with right eye pain and swelling. According to family members at the bedside patient has had a "pimple" on the right side of her face near her eye, they state that she has been "picki ng at it" and she noticed starting yesterday that her eye was getting swollen. patient states that she has not had any fevers or chills, only pain in the right facial eye area. Unknown tetanus status (JOSE MAC APRN) Review of Systems: Review of Systems: Constitutional: Denies fever or chills. [] Eyes: Right eyes swollen and reddened and painful HENT: Denies nasal congestion or sore throat. [] Respiratory: Denies cough or shortness of breath. [] Cardiovascular: Denies chest pain or edema. [] GI: Denies abdominal pain, nausea, vomiting, bloody stools or diarrhea. [] : Denies dysuria. [] Musculoskeletal: Denies back pain or joint pain. [] Integument: Denies rash. [] Neurologic: Denies headache, focal weakness or sensory changes. [] Endocrine: Denies polyuria or polydipsia. [] Lymphatic: Denies swollen glands. [] Psychiatric: Denies depression or anxiety. [] (JOSE MAC FIBRE COMPOSITE TECHNICIAN) Heart Score: C/O Chest Pain: No Risk Factors: Risk Factors: DM, Current or recent (<one month) smoker, HTN, HLP, family history of CAD, obesity. Risk Scores: Score 0 - 3: 2.5% MACE over next 6 weeks - Discharge Home Score 4 - 6: 20.3% MACE over next 6 weeks - Admit for Clinical Observation Score 7 - 10: 72.7% MACE over next 6 weeks - Early Invasive Strategies (JOSE MAC APRN) Current Medications: Current Medications Medications (Trade) Dose Ordered Sig/Beverly Start Time Stop Time Status Last Admin Dose Admin Fentanyl Citrate (Fentanyl 2ml Vial) 50 mcg 1X ONCE 10/04/21 09:45 10/04/21 09:50 DC Ondansetron HCl (Zofran) 4 mg 1X ONCE 10/04/21 09:45 10/04/21 09:50 DC Sodium Chloride 1,000 ml @ 999 mls/hr 1X ONCE 10/04/21 09:45 10/04/21 10:45 (JOSE MCA APRN) Allergies: Allergies: Allergies Coded Allergies Type Severity Reaction Last Updated Verified No Known Drug Allergies 04/10/18 No (JOSE MAC APRN) Physical Exam: PE: Constitutional: Well developed, well nourished, moderate distress, non-toxic appearance. [] HENT: Normocephalic, atraumatic, bilateral external ears normal, oropharynx moist, no oral exudates, nose normal. [] Eyes: Right eye orbital area is swollen red and warm to touch, patient is unable to open her eye but if you open the eyelids manually you will notice that the eye is red and there is cloudy discharge from the right eye, Neck: Normal range of motion, no tenderness, supple, no stridor. [] Cardiovascular:Heart rate regular rhythm, no murmur [] Lungs & Thorax: Bilateral breath sounds clear to auscultation [] Abdomen: Bowel sounds normal, soft, no tenderness, no masses, no pulsatile masses. [] Skin: Warm, dry, no erythema, no rash. [] Back: No tenderness, no CVA tenderness. [] Extremities: No tenderness, no cyanosis, no clubbing, ROM intact, no edema. [] Neurologic: Alert and oriented X 3, normal motor function, normal sensory fun ction, no focal deficits noted. [] Psychologic: Affect normal, judgement normal, mood normal. [] (JOSE MAC FIBRE COMPOSITE TECHNICIAN) PE: Constitutional: Well developed, well nourished HENT: Normocephalic, atraumatic Eyes: PERRL, EOMI, conjunctiva injected on right, purulent discharge noted Neck: Normal range of motion, no tenderness, supple Lungs & Thorax: No respiratory distress, equal chest rise and fall Skin: Warm, dry, right upper eyelid swelling and erythema with medial focal swelling/abscess concern Neurologic: Alert and oriented X 3, no focal deficits noted Psychologic: Affect normal, judgment normal (REN CONNELL DO) Current Patient Data: Labs: Laboratory Tests Test 10/04/21 10:10 10/04/21 11:30 White Blood Count 9.6 x10^3/uL Red Blood Count 4.75 x10^6/uL Hemoglobin 12.9 g/dL Hematocrit 38.5 % Mean Corpuscular Volume 81 fL Mean Corpuscular Hemoglobin 27 pg Mean Corpuscular Hemoglobin Concent 33 g/dL Red Cell Distribution Width 14.3 % Platelet Count 248 x10^3/uL Neutrophils (%) (Auto) 65 % Lymphocytes (%) (Auto) 27 % Monocytes (%) (Auto) 7 % Eosinophils (%) (Auto) 1 % Basophils (%) (Auto) 1 % Neutrophils # (Auto) 6.2 x10^3/uL Lymphocytes # (Auto) 2.5 x10^3/uL Monocytes # (Auto) 0.7 x10^3/uL Eosinophils # (Auto) 0.1 x10^3/uL Basophils # (Auto) 0.1 x10^3/uL Sodium Level 135 mmol/L Potassium Level 3.7 mmol/L Chloride Level 100 mmol/L Carbon Dioxide Level 29 mmol/L Anion Gap 6 Blood Urea Nitrogen 8 mg/dL Creatinine 0.9 mg/dL Estimated GFR (Cockcroft-Gault) 64.3 BUN/Creatinine Ratio 9 Glucose Level 162 mg/dL Lactic Acid Level 1.5 mmol/L Calcium Level 8.6 mg/dL Total Bilirubin 0.5 mg/dL Aspartate Amino Transf (AST/SGOT) 19 U/L Alanine Aminotransferase (ALT/SGPT) 28 U/L Alkaline Phosphatase 155 U/L Total Protein 9.1 g/dL Albumin 3.2 g/dL Albumin/Globulin Ratio 0.5 Influenza Type A Antigen Positive Influenza Type B Antigen Negative SARS-CoV-2 Antigen (Rapid) Negative Current Medications Medications (Trade) Dose Ordered Sig/Beverly Route PRN Reason Start Time Stop Time Status Last Admin Dose Admin Sodium Chloride 1,000 ml @ 999 mls/hr 1X ONCE IV 10/04/21 09:45 10/04/21 10:45 DC 10/04/21 10:18 Fentanyl Citrate (Fentanyl 2ml Vial) 50 mcg 1X ONCE IVP 10/04/21 09:45 10/04/21 09:50 DC 10/04/21 10:17 Ondansetron HCl (Zofran) 4 mg 1X ONCE IVP 10/04/21 09:45 10/04/21 09:50 DC 10/04/21 10:18 Vancomycin HCl (Vanco Per Pharmacy) 1 each PRN DAILY PRN MC SEE COMMENTS 10/04/21 10:15 UNV Piperacillin Sod/ Tazobactam Sod (Zosyn Per Pharmacy) 1 each PRN DAILY PRN MC SEE COMMENTS 10/04/21 10:15 UNV Iohexol (Omnipaque 300 Mg/ml) 70 ml 1X ONCE IV 10/04/21 10:45 10/04/21 10:50 DC 10/04/21 10:57 Piperacillin Sod/ Tazobactam Sod 3.375 gm/Sodium Chloride 50 ml @ 100 mls/hr 1X ONCE IV 10/04/21 11:00 10/04/21 11:29 DC 10/04/21 11:09 Vancomycin HCl 2 gm/Sodium Chloride 500 ml @ 250 mls/hr 1X ONCE IV 10/04/21 12:00 10/04/21 13:59 10/04/21 11:40 Vital Signs: Vital Signs Date Time Temp Pulse Resp B/P (MAP) Pulse Ox O2 Delivery O2 Flow Rate FiO2 10/04/21 13:17 80 20 140/70 (93) 96 Room Air 10/04/21 12:15 94 157/63 (94) 93 Room Air 10/04/21 11:55 96 150/69 (96) 94 Room Air 10/04/21 11:07 94 154/80 (104) 98 Room Air 10/04/21 10:17 16 94 10/04/21 10:07 100 169/80 (109) 96 Room Air 10/04/21 09:14 98.7 104 18 166/86 (112) 97 Room Air 98.7 10/04/21 09:07 110 166/89 (114) 96 Room Air Vital Signs Date Time Temp Pulse Resp B/P (MAP) Pulse Ox O2 Delivery O2 Flow Rate FiO2 10/04/21 09:14 98.7 104 18 166/86 (112) 97 Room Air 98.7 (JOSE MAC APRN) EKG: EKG: [] (JOSE MAC APRN) Radiology/Procedures: Radiology/Procedures: REASON: right eye swelling PROCEDURE: CT ORBITS W/CONTRAST CT ORBITS/SELLA WITH IV CONTRAST History: Reason: right eye swelling / Spl. Instructions: omni 300 70ml / History: Comparison: None. Technique: CT imaging was performed of the orbits with contrast. Coronal and sagittal reconstructions were performed. Exposure: One or more of the following individualized dose reduction techniques were utilized for this examination: 1. Automated exposure control 2. Adjustment of the mA and/or kV according to patient size 3. Use of iterative reconstruction technique. Findings: Distended fluid-filled nasal lacrimal sac measures 1.1 x 0.8 cm. there is adjace nt inflammatory changes. Mild preseptal periorbital soft tissue swelling. No retro-orbital involvement. Symmetric appearance of the bilateral globes, extraocular muscles and optic nerve sheaths. Orbits are unremarkable. Mild scattered paranasal sinus mucosal thickening. Mastoid air cells are clear. No acute fracture. Imaged intracranial contents are unremarkable. Impression: 1. Right dacrocystitis with adjacent inflammatory changes. Electronically signed by: Logan Mcallister DO (10/04/2021 11:12 AM) [id number] [] (JOSE MAC FIBRE COMPOSITE TECHNICIAN) Course & Med Decision Making: Course & Med Decision Making Pertinent Labs and Imaging studies reviewed. (See chart for details) [1121 contacted [facility] for transfer of this patient to [facility]. 1150 I spoke to ophthalmology [facility] he stated that the patient will need a higher level ophthalmology care and he recommended that I contact the [facility] for transfer to them for ophthalmology care. 1156 contacted the [facility] transfer team to transfer this patient to the [facility] for higher level ophthalmology care, they stated to cloud images to them, and they will contact ophthalmology on-call 1240 Yumiko from the [facility] transfer team states that the patient has been accepted as a transfer to the [facility], Dr. Gonsalez is the accepting physician, they state that they will call back with a room assignment when 1 is available. Did hear from the lab and they state the patient has influenza but is COVID-negative. (JOSE MAC FIBRE COMPOSITE TECHNICIAN) Kalie Disclaimer: Dragon Disclaimer: This electronic medical record was generated, in whole or in part, using a voice recognition dictation system. (JOSE MAC FIBRE COMPOSITE TECHNICIAN) Departure Departure Impression: Primary Impression: Dacrocystitis Qualified Codes: H04.301 - Unspecified dacryocystitis of right lacrimal passage Disposition: 02 SHORT TERM HOSPITAL Condition: STABLE Referrals: NO PCP (PCP) Attending Signature Attending Signature I have personally interviewed and examined the patient. All charts, labs, and imaging studies were reviewed. I agree with the PA/TELEVISION WRITER's findings, exam, and plan. (REN CONNELL DO) JOSE MAC FIBRE COMPOSITE TECHNICIAN Oct 04, 2021 10:09 REN CONNELL DO October 09, 2021 21:03
[2021-10-04] MEDS ORDERED: PIP/TAZO PER PHARMACY MC PRN (10:15)
[2021-10-04] MEDS ORDERED: VANCOMYCIN PER PHARMACY MC PRN (10:15)
[2021-10-04 10:25] LABS: BASO # 0.1 x10^3/uL (0.0-0.2); BASO % 1 % (0-3); EOS # 0.1 x10^3/uL (0.0-0.7); EOS % 1 % (0-3); HEMATOCRIT 38.5 % (36.0-47.0); HEMOGLOBIN 12.9 g/dL (12.0-15.5); LYMPH # 2.5 x10^3/uL (1.0-4.8); LYMPH % 27 % (24-48); MEAN CORPUSCULAR HEMOGLOBIN 27 pg (25-35); MEAN CORPUSCULAR HGB CONC 33 g/dL (31-37); MEAN CORPUSCULAR VOLUME 81 fL (79-100); MONO # 0.7 x10^3/uL (0.0-1.1); MONO % 7 % (0-9); NEUT # 6.2 x10^3/uL (1.8-7.7); NEUT % 65 % (31-73); PLATELET COUNT 248 x10^3/uL (140-400); RED BLOOD COUNT 4.75 x10^6/uL (3.50-5.40); RED CELL DISTRIBUTION WIDTH 14.3 % (11.5-14.5); WHITE BLOOD COUNT 9.6 x10^3/uL (4.0-11.0)
[2021-10-04 10:37] LABS: CALCIUM 8.6 mg/dL (8.5-10.1); CREATININE 0.9 mg/dL (0.6-1.0); GFR 64.3; POTASSIUM 3.7 mmol/L (3.5-5.1)
[2021-10-04 10:44] LABS: ALBUMIN 3.2 g/dL (3.4-5.0); ALBUMIN/GLOBULIN RATIO 0.5 (1.0-1.7); TOTAL BILIRUBIN 0.5 mg/dL (0.2-1.0); TOTAL PROTEIN 9.1 g/dL (6.4-8.2)
[2021-10-04] MEDS ORDERED: IOHEXOL 300 MG/ML 100ML VIAL. IV ONE (10:45)
[2021-10-04] MEDS ORDERED: PIPERACILLIN/TAZOBACTAM 3.375 GM in IV NORMAL SALINE 50ML 50 ML IV ONE (11:00)
--- NOTE | 2021-10-04 11:15 | RAD ---
CT ORBITS/SELLA WITH IV CONTRAST History: Reason: right eye swelling / Spl. Instructions: omni 300 70ml / History: Comparison: None. Technique: CT imaging was performed of the orbits with contrast. Coronal and sagittal reconstructions were performed. Exposure: One or more of the following individualized dose reduction techniques were utilized for thi s examination: 1. Automated exposure control 2. Adjustment of the mA and/or kV according to patient size 3. Use of iterative reconstruction technique. Findings: Distended fluid-filled nasal lacrimal sac measures 1.1 x 0.8 cm. there is adjacent inflammatory miller es. Mild preseptal periorbital soft tissue swelling. No retro-orbital involvement. Symmetric appearan ce of the bilateral globes, extraocular muscles and optic nerve sheaths. Orbits are unremarkable. Mild scattered paranasal sinus mucosal thickening. Mastoid air cells are mare ar. No acute fracture. Imaged intracranial contents are unremarkable. Impression: 1. Right dacrocystitis with adjacent inflammatory changes. Electronically signed by: Logan Mcallister DO (10/04/2021 11:12 AM) [id number]
--- NOTE | 2021-10-04 11:59 | NUR ---
[facility] CALLED AT 1123. [facility] CALLED [facility] AT 1142 AND 1150
[2021-10-04] MEDS ORDERED: VANCOMYCIN 2 GM in IV NORMAL SALINE 500ML BAG 500 ML IV ONE (12:00)
--- NOTE | 2021-10-04 12:12 | NUR ---
TRANSFER CENTER CALLED AT 1156.
[2021-10-04 12:43] LABS: INFLUENZA A PATIENT POSITIVE (NEGATIVE); INFLUENZA B PATIENT NEGATIVE (NEGATIVE)
[2021-10-04 13:17] VITALS: BP 140/70
== END 2021-10-04 13:21 | disposition short-term general hospital (02) ==
LOC: ER 08:40
DX: H04.301 Unspecified dacryocystitis of right lacrimal passage (principal); J45.909 Unspecified asthma, uncomplicated; Z20.822 Contact with and (suspected) exposure to COVID-19
CPT/HCPCS: 36415; 70481; 80053; 83605; 85025; 87040; 87428; 96361; 96365; 96367; 96375; 99285; J2405; J2543; J3010; J3370; J7030; J7040; Q9967